=== PATIENT | female | born 1970 | race Caucasian/White ===

== ENCOUNTER 2017-11-25 09:46 | Inpatient (IN) | payer OTHER ==
[2017-11-25] VITALS (9 sets, daily range): BP systolic 118–148; BP diastolic 63–95; PULSE 73–85; RESP 16–20; TEMP 96.7–99.1; O2SAT 95–100
[~2017-11-25] VITALS: Ht 167.6 cm; Wt 76.1 kg
[2017-11-25] MEDS ORDERED: LEVO100T5 PO (10:11)
[2017-11-25] MEDS ORDERED: FLUO-1 PO (10:11)
[2017-11-25] MEDS ORDERED: SODIUM CHLOR 0.9% 1000 ML INJ 1,000 ML IV ONE (10:17)
--- NOTE | 2017-11-25 10:24 | PD ---
HPI . Headache Chief Complaint: GI Complaint Time Seen by Provider: 10:17 Travel History International Travel<30 days: No Contact w/Intl Traveler<30days: No Traveled to known affect area: No History of Present Illness HPI Patient presents with a chief complaint of a headache. Onset was about 8 days ago. It is a global headache which she describes as knives in her head. She currently rates her pain at 7/10. Pain is exacerbated by standing. Associated symptoms include nausea, vomiting, dry heaves and chills. Patient reports that she was seen at an urgent care clinic at the onset of her symptoms and was treated with IV fluids and several different IV medications including Zofran, Reglan, Phenergan and steroids. She states that she felt better. However, her symptoms quickly recurred. She states that the symptoms do wax and wane. She has continued to take Zofran, Reglan, ibuprofen and steroids which she was prescribed a week ago without any relief in her symptoms. PFSH Past Medical History Medical other: Yes (REYNAUD'S DISEASE, CREST DISORDER ) Thyroid Disease: Yes (HYPOTHYROIDISM) ?: Not Menopausal: Yes Past Surgical History Section: Yes Gynecologic Surgery: Yes ("FEMALE SURGERY") Other Surgery: Yes (EAR TUBES X2 CHILD) Social History Alcohol Use: Yes (OCC) Tobacco Use: No Substance Use: No Allergies-Medications (Allergen,Severity, Reaction): Coded Allergies: No Known Allergies (Unverified , 11/25/17) Reported Meds & Prescriptions Reported Meds & Active Scripts Active Reported Prozac (Fluoxetine HCl) 10 Mg Cap 10 Mg PO DAILY Levothyroxine (Levothyroxine Sodium) 100 Mcg Tab 100 Mcg PO DAILY Review of Systems Except as stated in HPI: all other systems reviewed are Neg General / Constitutional: Positive: Chills, No: Fever Eyes: No: Blurred Vision, Photophobia HENT: Positive: Headaches Cardiovascular: No: Chest Pain or Discomfort Respiratory: No: Cough, Shortness of Breath Gastrointestinal: Positive: Nausea, Vomiting, No: Abdominal Pain Genitourinary: No: Urgency, Frequency, Dysuria Physical Exam Narrative GENERAL: Patient looks like she feels poorly. SKIN: warm/dry. Normal color and turgor. HEAD: Normocephalic. Nontender. EYES: Pupils equal and round. No scleral icterus. No injection or drainage. ENT: No nasal bleeding or discharge. Mucous membranes pink and moist. NECK: Trachea midline. Full range of motion. Her neck is supple. CARDIOVASCULAR: Regular rate and rhythm. Heart sounds are normal. RESPIRATORY: No accessory muscle use. Clear to auscultation. Breath sounds equal bilaterally. GASTROINTESTINAL: Abdomen soft. Nontender. Bowel sounds present. Nondistended. Delete MUSCULOSKELETAL: No obvious deformities. NEUROLOGICAL: Awake and alert. No obvious cranial nerve deficits. Motor grossly within normal limits. Normal speech. PSYCHIATRIC: Appropriate mood and affect; insight and judgment normal. Data Data Last Documented VS Vital Signs Date Time Temp Pulse Resp B/P (MAP) Pulse Ox O2 Delivery O2 Flow Rate FiO2 11/25/17 14:09 97.8 78 16 118/63 (81) 99 Room Air Orders Orders Complete Blood Count With Diff (11/25/17 10:17) Basic Metabolic Panel (Bmp) (11/25/17 10:17) Ct Brain W/O Iv Contrast(Rout) (11/25/17 10:17) Iv Access Insert/Monitor (11/25/17 10:17) Sodium Chloride 0.9% Flush (Ns Flush) (11/25/17 10:30) Prochlorperazine Inj (Compazine Inj) (11/25/17 10:30) Diphenhydramine Inj (Benadryl Inj) (11/25/17 10:30) Sodium Chlor 0.9% 1000 Ml Inj (Ns 1000 M (11/25/17 10:17) Ondansetron Inj (Zofran Inj) (11/25/17 11:45) Csf Cell Count + Differential (11/25/17 12:07) Glucose, Csf (11/25/17 12:07) Total Protein, Csf (11/25/17 12:07) Csf Cryptococcus Antigen (11/25/17 12:07) Csf Culture And Gram Stain (11/25/17 13:22) Ceftriaxone Inj (Rocephin Inj) (11/25/17 14:00) Consult Infectious Disease (11/25/17 ) Admit Order (Ed Use Only) (11/25/17 ) Vital Signs (Adult) Q4H (11/25/17 14:59) Diet Heart Healthy (11/25/17 Dinner) Activity Oob With Assistance (11/25/17 14:59) Notify Dr: Other (11/25/17 14:59) Labs Laboratory Tests Test 11/25/17 10:45 11/25/17 12:59 White Blood Count 11.1 TH/MM3 Red Blood Count 5.42 MIL/MM3 Hemoglobin 16.7 GM/DL Hematocrit 47.8 % Mean Corpuscular Volume 88.1 FL Mean Corpuscular Hemoglobin 30.8 PG Mean Corpuscular Hemoglobin Concent 35.0 % Red Cell Distribution Width 13.5 % Platelet Count 190 TH/MM3 Mean Platelet Volume 9.0 FL Neutrophils (%) (Auto) 85.9 % Lymphocytes (%) (Auto) 8.4 % Monocytes (%) (Auto) 4.4 % Eosinophils (%) (Auto) 1.1 % Basophils (%) (Auto) 0.2 % Neutrophils # (Auto) 9.6 TH/MM3 Lymphocytes # (Auto) 0.9 TH/MM3 Monocytes # (Auto) 0.5 TH/MM3 Eosinophils # (Auto) 0.1 TH/MM3 Basophils # (Auto) 0.0 TH/MM3 CBC Comment DIFF FINAL Differential Comment Blood Urea Nitrogen 16 MG/DL Creatinine 0.77 MG/DL Random Glucose 86 MG/DL Calcium Level 8.8 MG/DL Sodium Level 137 MEQ/L Potassium Level 4.0 MEQ/L Chloride Level 104 MEQ/L Carbon Dioxide Level 27.3 MEQ/L Anion Gap 6 MEQ/L Estimat Glomerular Filtration Rate 80 ML/MIN CSF Volume (Tube 1) 1.0 ML CSF Supernatant Color (tube 1) CLEAR CSF Gross Blood (Tube 1) TRACE CSF Volume (Tube 2) 1.0 ML CSF Supernatant Color (tube 2) CLEAR CSF Gross Blood (Tube 2) 0 CSF Volume (Tube 3) 1.0 ML CSF Supernatant Color (tube 3) CLEAR CSF Gross Blood (Tube 3) 0 CSF Volume (Tube 4) 1.2 ML CSF Supernatant Color (tube 4) CLEAR CSF Gross Blood (Tube 4) 0 CSF WBC (Tube 4) 1030 /MM3 CSF RBC (Tube 4) 20 /MM3 CSF Neutrophils 2 % CSF Lymphocytes 96 % CSF Monocytes 2 % CSF Glucose 29 MG/DL CSF Total Protein 136.4 MG/DL MDM Medical Decision Making Medical Screen Exam Complete: Yes Emergency Medical Condition: Yes Medical Record Reviewed: Yes (This patient has no previous visits here.) Differential Diagnosis Differential diagnosis of headache includes but is not limited to migraine, muscle contraction headache, brain tumor, brain bleed Narrative Course This patient presents with a headache associated with nausea and vomiting. Onset of her symptoms was 8 days ago. Physical exam is reassuring. I have ordered IV fluids as well as IV Compazine and Benadryl. Routine labs have been ordered as well as a CT of her head. I am not suspicious of meningitis because her neck is supple. Furthermore, she has been sick now for [address]>>No acute disease. 11:40 AM Patient reports that her head and neck are improved but she is still very nauseous. I have not seen any active vomiting. I will give her a dose of Zofran IV. Spinal tap was discussed with the patient. She was in agreement to proceed with the procedure. The patient noted no significant change in her symptoms with the spinal tap. That is, her headache did not rapidly improve. CSF has 1030 WBCs with a lymphocytosis. Glucose is 29 and protein is 136. She has been empirically treated with Rocephin. The patient has agreed to admission pending the results of her cultures. Procedures Procedure Narrative SPINAL TAP: Following informed written consent, identification of the correct patient and timeout: The patient was placed in the left lateral decubitus position. The back was prepped. The site was draped. The skin was locally anesthetized with 1% plain lidocaine. Approximately 5 cc of spinal fluid was then removed and sent to the lab for testing. Following informed written consent, identification of the correct patient and timeout: Physician Communication Physician Communication Dr. Waters Diagnosis Primary Impression: Nausea & vomiting Qualified Codes: R11.2 - Nausea with vomiting, unspecified Additional Impression: Headache Qualified Codes: R51 - Headache Admitting Information Admitting Physician Requests: Admit Condition: Stable Radha Hendricks MD Nov 25, 2017 10:24
[2017-11-25] MEDS ORDERED: PROCHLORPERAZINE INJ 10 MG/2 ML VIAL IVP ONE (10:30)
[2017-11-25] MEDS ORDERED: diphenhydrAMINE HCL 50 MG/ML VIAL IVP ONE (10:30)
[2017-11-25] MEDS: SODIUM CHLORIDE 0.9% FLUSH 10 ML FLUSH IVF PRN ×2 (10:43→15:58)
[2017-11-25 11:07] LABS: AUTOMATED NEUTROPHIL # 9.6 TH/MM3 (1.8-7.7); BASOPHIL % 0.2 % (0.0-2.0); EOSINOPHIL # 0.1 TH/MM3 (0-0.4); EOSINOPHIL % 1.1 % (0.0-4.0); HEMATOCRIT 47.8 % (35.0-46.0); HEMOGLOBIN 16.7 GM/DL (11.6-15.3); LYMPH % 8.4 % (9.0-44.0); LYMPHOCYTE # 0.9 TH/MM3 (1.0-4.8); MEAN CELL VOLUME 88.1 FL (80.0-100.0); MEAN CORPUSCULAR HEMOGLOBIN 30.8 PG (27.0-34.0); MONO % 4.4 % (0.0-8.0); MONOCYTE # 0.5 TH/MM3 (0-0.9); NEUT % 85.9 % (16.0-70.0); PLATELET COUNT 190 TH/MM3 (150-450); RED BLOOD COUNT 5.42 MIL/MM3 (4.00-5.30); RED CELL DISTRIBUTION WIDTH 13.5 % (11.6-17.2); WHITE BLOOD COUNT 11.1 TH/MM3 (4.0-11.0)
--- NOTE | 2017-11-25 11:13 | RADRPT ---
EXAM DATE/TIME: 11/25/2017 10:58 [facility] COMPARISON: No previous studies available for comparison. INDICATIONS : Headache, nausea. RADIATION DOSE: 35.86 CTDIvol (mGy) MEDICAL HISTORY : None SURGICAL HISTORY : None. ENCOUNTER: Initial ACUITY: 1 week PAIN SCALE: 4/10 LOCATION: Bilateral cranial TECHNIQUE: Multiple contiguous axial images were obtained of the head. Using automated exposure control and adj ustment of the mA and/or kV according to patient size, radiation dose was kept as low as reasonably a chievable to obtain optimal diagnostic quality images. DICOM format image data is available electro nically for review and comparison. FINDINGS: CEREBRUM: The ventricles are normal for age. No evidence of midline shift, mass lesion, hemorrhage or acute in farction. No extra-axial fluid collections are seen. POSTERIOR FOSSA: The cerebellum and brainstem are intact. The 4th ventricle is midline. The cerebellopontine angle i s unremarkable. EXTRACRANIAL: The visualized portion of the orbits is intact. SKULL: The calvaria is intact. No evidence of skull fracture. CONCLUSION: No acute disease. Aramis Betts MD on November 25, 2017 at 11:10 Board Certified Radiologist. This report was verified electronically.
[2017-11-25] MEDS ORDERED: ONDANSETRON HCL 4 MG/2 ML VIAL IV PUSH ONE ×2 (11:45→15:30)
[2017-11-25 11:54] LABS: BICARBONATE 27.3 MEQ/L (21.0-32.0); CALCIUM 8.8 MG/DL (8.5-10.1); CREATININE 0.77 MG/DL (0.50-1.00)
[2017-11-25 13:38] LABS: TOTAL PROTEIN,CSF 136.4 MG/DL (15.0-45.0)
[2017-11-25 13:56] LABS: SUPERNATE COLOR TUBE #1 CLEAR (CLEAR)
[2017-11-25 13:58] LABS: RBC TUBE #4 20 /MM3; WBC TUBE #4 1030 /MM3 (0-10)
[2017-11-25] MEDS ORDERED: cefTRIAXone INJ 2,000 MG in SODIUM CHLORIDE 0.9% INJ 100 ML IV ONE (14:00)
[2017-11-25 14:07] LABS: CSF LYMPHOCYTES 96 %; CSF MONOCYTES 2 %; CSF NEUTROPHILS 2 %
[2017-11-25] MEDS ORDERED: HYDROmorphone HCL PF 2 MG/ML VIAL IV PUSH ONE (16:00)
--- NOTE | 2017-11-25 17:22 | HHI.HP ---
HPI Service [facility] Primary Care Physician No Primary Care Physician Admission Diagnosis meningitis Diagnoses: Chief Complaint: Headache nausea vomiting Travel History International Travel<30 Days: No Contact w/Intl Traveler <30 Da: No Traveled to Known Affected Are: No History of Present Illness Patient is a 47-year-old right handed female who presented to the hospital complaining of headache nausea and vomiting for about a week now. Patient was in [place] then. Patient also states some on and off low-grade fever with MAXIMUM TEMPERATURE of 99.4. Persistence of this prompted consult in an urgent care clinic where she was prescribed some medications "for the stomach".. Patient denies any diarrhea. Denies any cough. Or any URI symptoms. Patient denies any recent sick contacts or recent travel out of the country. Denies any vaginal bleeding still sexually active. Patient states unable to hold down any food. This morning also felt lightheaded which prompted her to come to the hospital and admitted for further evaluation. Patient on review of systems - night sweats which is attributed to her perimenopausal period. And she was prescribed Prozac for this. Patient also takes when necessary medications for knee pain.- Lortab,. Review of Systems Constitutional: DENIES: Fever, Weight loss, Chills, Change in appetite Eyes: DENIES: Blurred vision, Double Vision Ears, nose, mouth, throat: DENIES: Tinnitus, Ear Pain, Epistaxis, Odynophagia Respiratory: DENIES: Cough, Hemoptysis, Sputum production, Shortness of breath Cardiovascular: DENIES: Chest pain, Palpitations, Dyspnea on Exertion, Lower Extremity Edema, Orthopnea Gastrointestinal: DENIES: Black stools, Bloody stools, Difficulty Swallowing, Anorexia Genitourinary: DENIES: Urgency, Hematuria, Vaginal discharge Musculoskeletal: DENIES: Joint pain, Stiffness Integumentary: DENIES: Pruritus Hematologic/lymphatic: DENIES: Bruising Immunologic/allergic: DENIES: Urticaria Neurologic: DENIES: Headache, Speech Problems, Tremor Psychiatric: DENIES: Suicidal Ideation, Homicidal Ideation Past Family Social History Past Medical History Hypothyroidism on Synthroid Chronic knee pain takes not a when necessary for pain Perimenopausal. With night sweats and was prescribed Prozac Past Surgical History Right knee surgery about 6 years ago secondary to a meniscal tear. section and prepped patient described his some scar tissue removal in her uterus states no hysterectomy was done Reported Medications Synthroid Prozac [place] when necessary for pain Allergies: Coded Allergies: No Known Allergies (Unverified , 11/25/17) Family History Noncontributory Social History Smokes 1-1-1/2 pack per day very occasional alcohol use Denies any polysubstance or recreational drug use Physical Exam Vital Signs Vital Signs Date Time Temp Pulse Resp B/P (MAP) Pulse Ox O2 Delivery O2 Flow Rate FiO2 11/25/17 16:28 16 11/25/17 15:30 97.8 76 16 148/80 (102) 98 Room Air 11/25/17 14:09 97.8 78 16 118/63 (81) 99 Room Air 11/25/17 13:05 97.8 73 16 125/66 (85) 99 Room Air 11/25/17 12:01 97.8 73 16 143/81 (101) 99 Room Air 11/25/17 10:06 98.3 82 19 136/89 (105) 98 Room Air 11/25/17 09:51 99.1 81 18 145/95 (112) 100 Physical Exam GENERAL: Patient drowsy but able to answer however takes quite a while to answer , positive photophobia, patient slightly irritable and states that she hasn't slept for the past 5 days. SKIN: No rashes, ecchymoses or lesions. Cool and dry. HEAD: Atraumatic. Normocephalic. No temporal or scalp tenderness. Bilateral photophobia EYES: Pupils equal round and reactive. Extraocular motions intact. No scleral icterus. No injection or drainage. ENT: Nose without bleeding, purulent drainage or septal hematoma. Throat without erythema, very dry oral mucosa. No periauricular tenderness. Ear canals dry. NECK: Trachea midline. No JVD or lymphadenopathy. Positive nuchal rigidity CARDIOVASCULAR: Regular rate and rhythm without murmurs, gallops, or rubs. RESPIRATORY: Clear to auscultation. Breath sounds equal bilaterally. No wheezes , rales, or rhonchi. GASTROINTESTINAL: Abdomen soft, non-tender, nondistended. No guarding. MUSCULOSKELETAL: Extremities without clubbing, cyanosis, or edema. No joint tenderness, effusion, or edema noted. No calf tenderness. Negative Homans sign bilaterally. Motor strength equal in all extremities. Gait testing deferred NEUROLOGICAL: Drowsy. Speech was clear but slow . Cranial nerves II through XII intact. Motor and sensory grossly within normal limits. Five out of 5 muscle strength in all muscle groups. Normal speech. Laboratory Laboratory Tests Test 11/25/17 10:45 11/25/17 12:59 White Blood Count 11.1 Red Blood Count 5.42 Hemoglobin 16.7 Hematocrit 47.8 Mean Corpuscular Volume 88.1 Mean Corpuscular Hemoglobin 30.8 Mean Corpuscular Hemoglobin Concent 35.0 Red Cell Distribution Width 13.5 Platelet Count 190 Mean Platelet Volume 9.0 Neutrophils (%) (Auto) 85.9 Lymphocytes (%) (Auto) 8.4 Monocytes (%) (Auto) 4.4 Eosinophils (%) (Auto) 1.1 Basophils (%) (Auto) 0.2 Neutrophils # (Auto) 9.6 Lymphocytes # (Auto) 0.9 Monocytes # (Auto) 0.5 Eosinophils # (Auto) 0.1 Basophils # (Auto) 0.0 CBC Comment DIFF FINAL Differential Comment Blood Urea Nitrogen 16 Creatinine 0.77 Random Glucose 86 Calcium Level 8.8 Sodium Level 137 Potassium Level 4.0 Chloride Level 104 Carbon Dioxide Level 27.3 Anion Gap 6 Estimat Glomerular Filtration Rate 80 CSF Volume (Tube 1) 1.0 CSF Supernatant Color (tube 1) CLEAR CSF Gross Blood (Tube 1) TRACE CSF Volume (Tube 2) 1.0 CSF Supernatant Color (tube 2) CLEAR CSF Gross Blood (Tube 2) 0 CSF Volume (Tube 3) 1.0 CSF Supernatant Color (tube 3) CLEAR CSF Gross Blood (Tube 3) 0 CSF Volume (Tube 4) 1.2 CSF Supernatant Color (tube 4) CLEAR CSF Gross Blood (Tube 4) 0 CSF WBC (Tube 4) 1030 CSF RBC (Tube 4) 20 CSF Neutrophils 2 CSF Lymphocytes 96 CSF Monocytes 2 CSF Glucose 29 CSF Total Protein 136.4 Date/Time Source Procedure Growth Status 11/25/17 12:59 Cerebral Spinal Fluid Lumbar Puncture Gram Stain - Final Resulted 11/25/17 12:59 Cerebral Spinal Fluid Lumbar Puncture CSF Culture Pending Resulted Result Diagram: 11/25/17 1045 11/25/17 1045 Imaging Last Impressions Head CT 11/25/17 1017 Signed Impressions: Service Date/Time: Saturday, November 25, 2017 10:58 - CONCLUSION: No acute disease. MD Iris Zamora VTE Risk Assessment Iris VTE Risk Assessment: Mod/High Risk (score >= 2) VTE Pharm Contraindication: recent LP Caprini Risk Assessment Model Point Value = 1 Point Value = 2 Point Value = 3 Point Value = 5 Age 41-60 Minor surgery BMI > 25 kg/m2 Swollen legs Varicose veins or History of unexplained or recurrent spontaneous Oral contraceptives or hormone replacement Sepsis (< 1 month) Serious lung disease, including pneumonia (< 1 month) Abnormal pulmonary function Acute myocardial infarction Congestive heart failure (< 1 month) History of inflammatory bowel disease Medical patient at bed rest Age 61-74 Arthroscopic surgery Major open surgery (> 45 min) Laparoscopic surgery (> 45 min) Malignancy Confined to bed (> 72 hours) Immobilizing plaster cast Central venous access Age >= 75 History of VTE Family history of VTE Factor V Leiden Prothrombin [id number] Lupus anticoagulant Anticardiolipin antibodies Elevated serum homocysteine Heparin-induced thrombocytopenia Other congenital or acquired thrombophilia Stroke (< 1 month) Elective arthroplasty Hip, pelvis, or leg fracture Acute spinal cord injury (< 1 month) Prophylaxis Regimen Total Risk Factor Score Risk Level Prophylaxis Regimen 0-1 Low Early ambulation 2 Moderate Order ONE of the following: *Sequential Compression Device (SCD) *Heparin 5000 units SQ BID 3-4 Higher Order ONE of the following medications: *Heparin 5000 units SQ TID *Enoxaparin/Lovenox 40 mg SQ daily (WT < 150 kg, CrCl > 30 mL/min) *Enoxaparin/Lovenox 30 mg SQ daily (WT < 150 kg, CrCl > 10-29 mL/min) *Enoxaparin/Lovenox 30 mg SQ BID (WT < 150 kg, CrCl > 30 mL/min) AND/OR *Sequential Compression Device (SCD) 5 or more Highest Order ONE of the following medications: *Heparin 5000 units SQ TID (Preferred with Epidurals) *Enoxaparin/Lovenox 40 mg SQ daily (WT < 150 kg, CrCl > 30 mL/min) *Enoxaparin/Lovenox 30 mg SQ daily (WT < 150 kg, CrCl > 10-29 mL/min) *Enoxaparin/Lovenox 30 mg SQ BID (WT < 150 kg, CrCl > 30 mL/min) AND *Sequential Compression Device (SCD) Assessment and Plan Assessment and Plan 47-year-old female presenting with one-week history of headache nausea or vomiting with low-grade fever and neck pain Acute bacterial meningitis An LP was done which shows high protein with elevated WBC and low glucose. Start patient on IV fluid. NPO for now . Clear liquids when fully awake and tolerated. When necessary Zofran for nausea. Blood cultures were requested. Check hepatic panel. start her on Rocephin 2 gm IV q 12 ID consulted for further antibiotics recommendations Follow final CSF cultures/ studies Clinically dehydrated start maintenance IVF hypothyroidism continue on Synthroid check a baseline TSH Smoker- will children's counselor prior to DC Bilateral teds SCDs. Zantac IV for GI prophylaxis no Lovenox with recent LP Discussed Condition With Patient will discuss with her again when fully awake Physician Certification 2 Midnight Certification Type: Admission for Inpatient Services Order for Inpatient Services The services are ordered in accordance with Medicare regulations or non- Medicare payer requirements, as applicable. In the case of services not specified as inpatient-only, they are appropriately provided as inpatient services in accordance with the 2-midnight benchmark. Estimated LOS (days): 3 days is the estimated time the patient will need to remain in the hospital, assuming treatment plan goals are met and no additional complications. Post-Hospital Plan: Not yet determined Paul Olmedo MD Nov 25, 2017 17:22
[2017-11-25] MEDS ORDERED: Vancomycin Consult Pharmacy 1 EA OTHER PRN (17:30)
--- NOTE | 2017-11-25 17:33 | PD.CONS ---
History of Present Illness Service Infectious Disease Consult Requested By Dr Hendricks Reason for Consult Evaluate patient with meningitis Primary Care Physician No Primary Care Physician Diagnoses: History of Present Illness Patient seen and examined. Records reviewed. Patient is a 47-year-old female, presented to the hospital for evaluation of her headache, nausea and vomiting. Patient lives in [place] and came down here for the bike week. She started getting sick while she was still in [place] about a week ago. She was having generalized headache, and really bad nausea and vomiting. Was unable to take anything down. She went to an urgent care center there and she was given medications to control her GI symptoms. Patient and the drove down for 2 days to calm down here and they arrived last which is about 3 days prior to admission. Her symptoms continued, and she was also having some photophobia, and highest temperature was just low-grade. She denies any ear problem. No upper respiratory complaints no cough. She has not been anyone sick. She has cats and dogs at home. No birds. This will her and her 21-year-old daughter and none of them are sick. No prior history of meningitis. Presented to the emergency room, and CT of the head is unremarkable. LP was done and it had 1000 white cells predominantly lymphocytes, and it has a very low glucose. Her WBC is normal. She is afebrile. Infectious disease consultation has been requested to evaluate the patient for meningitis. Review of Systems Constitutional: COMPLAINS OF: Dizziness, Change in appetite, Night Sweats, DENIES: Fever Eyes: COMPLAINS OF: Photosensitivity, DENIES: Eye pain, Double Vision Ears, nose, mouth, throat: DENIES: Nasal discharge, Oral lesions, Throat pain, Running Nose, Sinus Pain Respiratory: DENIES: Cough, Sputum production, Shortness of breath Cardiovascular: DENIES: Chest pain, Palpitations Gastrointestinal: COMPLAINS OF: Constipation, Nausea, Vomiting, Anorexia, DENIES: Abdominal pain, Difficulty Swallowing Genitourinary: DENIES: Urgency, Hematuria, Dysuria Musculoskeletal: COMPLAINS OF: Neck pain Integumentary: DENIES: Rash Hematologic/lymphatic: DENIES: Lymphadenopathy Neurologic: COMPLAINS OF: Headache, DENIES: Localized weakness Psychiatric: COMPLAINS OF: Hallucinations Past Family Social History Allergies: Coded Allergies: No Known Allergies (Unverified , 11/25/17) Past Medical History Hypothyroidism on Synthroid Chronic knee pain takes not a when necessary for pain Perimenopausal. 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 section and prepped patient described his some scar tissue removal in her uterus states no hysterectomy was done Active Ordered Medications Current Medications Medications (Trade) Dose Ordered Sig/[place] Route Start Time Stop Time Status Last Admin (NS Flush) 2 ml UNSCH PRN IVF 11/25/17 10:30 11/25/17 15:58 Potassium Chloride/Dextrose/ Sod Cl 1,000 ml @ 100 mls/hr Q10H IV 11/25/17 17:15 Family History Noncontributory Social History Smokes 1-1-1/2 pack per day Occasional alcohol use Denies any polysubstance or recreational drug use Physical Exam Vital Signs Vital Signs Date Time Temp Pulse Resp B/P (MAP) Pulse Ox O2 Delivery O2 Flow Rate FiO2 11/25/17 16:28 16 11/25/17 15:30 97.8 76 16 148/80 (102) 98 Room Air 11/25/17 14:09 97.8 78 16 118/63 (81) 99 Room Air 11/25/17 13:05 97.8 73 16 125/66 (85) 99 Room Air 11/25/17 12:01 97.8 73 16 143/81 (101) 99 Room Air 11/25/17 10:06 98.3 82 19 136/89 (105) 98 Room Air 11/25/17 09:51 99.1 81 18 145/95 (112) 100 Physical Exam GENERAL: Patient is a well-nourished, well-developed patient, lethargic, looks uncomfortable, not in respiratory distress. SKIN: Cool and dry. No generalized rash, no ecchymoses and no evidence of embolic lesions. HEAD: Atraumatic. Normocephalic. No temporal wasting, or tenderness. EYES: [place] conjunctiva. No petechia or hemorrhage. Pupils equal, round and reactive to light. Extraocular movements full and intact. No scleral icterus. No injection or drainage. EARS, NOSE AND THROAT: Nose without bleeding or purulent nasal discharge. No sinus tenderness. Slightly dry oral mucosa, no oral lesions. No exudate. No oral thrush. NECK: Trachea midline. Supple and not tender, no meningeal signs. Pain on flexion, but able to flex CARDIOVASCULAR: Regular rate and rhythm. No murmurs, rubs or gallops heard RESPIRATORY: Clear to auscultation. Breath sounds equal bilaterally. No rales , wheezing or rhonchi ABDOMEN: Soft, non-tender, nondistended. Bowel sounds present and normoactive. No guarding. No rebound. No organomegaly. EXTREMITIES: No clubbing, cyanosis, or edema. No joint effusion, has good ROM. No calf tenderness. Well perfused and warm. NEUROLOGICAL: Mild lethargy. Cranial nerves grossly intact. Speech clear. Motor grossly within normal limits. PSYCHIATRIC: cooperative. LINE: No evidence of infection Laboratory Laboratory Tests Test 11/25/17 10:45 11/25/17 12:59 White Blood Count 11.1 Red Blood Count 5.42 Hemoglobin 16.7 Hematocrit 47.8 Mean Corpuscular Volume 88.1 Mean Corpuscular Hemoglobin 30.8 Mean Corpuscular Hemoglobin Concent 35.0 Red Cell Distribution Width 13.5 Platelet Count 190 Mean Platelet Volume 9.0 Neutrophils (%) (Auto) 85.9 Lymphocytes (%) (Auto) 8.4 Monocytes (%) (Auto) 4.4 Eosinophils (%) (Auto) 1.1 Basophils (%) (Auto) 0.2 Neutrophils # (Auto) 9.6 Lymphocytes # (Auto) 0.9 Monocytes # (Auto) 0.5 Eosinophils # (Auto) 0.1 Basophils # (Auto) 0.0 CBC Comment DIFF FINAL Differential Comment Blood Urea Nitrogen 16 Creatinine 0.77 Random Glucose 86 Calcium Level 8.8 Sodium Level 137 Potassium Level 4.0 Chloride Level 104 Carbon Dioxide Level 27.3 Anion Gap 6 Estimat Glomerular Filtration Rate 80 CSF Volume (Tube 1) 1.0 CSF Supernatant Color (tube 1) CLEAR CSF Gross Blood (Tube 1) TRACE CSF Volume (Tube 2) 1.0 CSF Supernatant Color (tube 2) CLEAR CSF Gross Blood (Tube 2) 0 CSF Volume (Tube 3) 1.0 CSF Supernatant Color (tube 3) CLEAR CSF Gross Blood (Tube 3) 0 CSF Volume (Tube 4) 1.2 CSF Supernatant Color (tube 4) CLEAR CSF Gross Blood (Tube 4) 0 CSF WBC (Tube 4) 1030 CSF RBC (Tube 4) 20 CSF Neutrophils 2 CSF Lymphocytes 96 CSF Monocytes 2 CSF Glucose 29 CSF Total Protein 136.4 Date/Time Source Procedure Growth Status 11/25/17 12:59 Cerebral Spinal Fluid Lumbar Puncture Gram Stain - Final Resulted 11/25/17 12:59 Cerebral Spinal Fluid Lumbar Puncture CSF Culture Pending Resulted Result Diagram: 11/25/17 1045 11/25/17 1045 Imaging RADIOLOGY STUDIES/FILMS REVIEWED Last Impressions Head CT 11/25/17 1017 Signed Impressions: Service Date/Time: Saturday, November 25, 2017 10:58 - CONCLUSION: No acute disease. Aramis Betts MD Assessment and Plan Assessment and Plan IMPRESSION Meningitis, late, has very high WBC, now mostly lymphocytes (neutrophils early then becomes lymphocytes), very low glucose KEARNEY, N/V due to meningitis RECOMMENDATION BC UA and C/S Urine for pneumococcal Ag CSF studies, will add HSV and bacterial Ag MRI brain tomorrow Empiric Abx: Vanco, Rocephin, Ampicillin Follow C/S Monitor progress D/C isolation after 24 hours from adm of Abx I will follow along with you Thank you for this consultation Discussed Condition With D/W Migdalia Alonzo MD Nov 25, 2017 17:33
[2017-11-25] MEDS ORDERED: VANCOMYCIN 1 GM/200 ML PREMIX IV SCH (18:00)
[2017-11-25] MEDS ORDERED: cefTRIAXone INJ 2,000 MG in SODIUM CHLORIDE 0.9% INJ 100 ML IV SCH (18:00)
[2017-11-25 18:20] LABS: TOTAL BILIRUBIN ADULT 0.5 MG/DL (0.2-1.0); TOTAL PROTEIN 7.7 GM/DL (6.4-8.2)
[2017-11-25] MEDS ORDERED: VANCOMYCIN INJ 1,000 MG in SODIUM CHLOR 0.9% 250 ML INJ 250 ML IV SCH (18:30)
[2017-11-25 18:46] LABS: DIRECT BILIRUBIN ADULT 0.1 MG/DL (0.0-0.2); INDIRECT BILIRUBIN 0.4 MG/DL (0.0-0.8)
[2017-11-25] MEDS: AMPICILLIN INJ 2,000 MG in SODIUM CHLORIDE 0.9% INJ 100 ML IV SCH ×2 (18:52→21:05)
[2017-11-25] MEDS: FAMOTIDINE 20 MG/2 ML VIAL IV PUSH SCH (18:57)
[2017-11-25] MEDS: VANCOMYCIN INJ 1,000 MG in SODIUM CHLOR 0.9% 250 ML INJ 250 ML IV SCH (19:31)
[2017-11-25] MEDS ORDERED: VANCOMYCIN INJ 1,750 MG in SODIUM CHLORID 0.9% 500 ML INJ 500 ML IV ONE (20:00)
[2017-11-25] MEDS: D5-NS + KCL 20 MEQ INJ 1,000 ML IV SCH (21:05)
[2017-11-25 22:16] LABS: BILIRUBIN, URINE NEG (NEG); BLOOD, URINE NEG (NEG); GLUCOSE,URINE NEG (NEG); HYALINE CAST, URINE 1 /lpf (RARE); KETONE, URINE 40 mg/dL (NEG); MUCUS URINE FEW /lpf (OCC); NITRITE,URINE NEG (NEG); PH, URINE 5.5 (5.0-8.5); SQUAMOUS EPITHELIAL CELL URINE 1 /hpf (0-5); URINE COLOR YELLOW (YELLW/STRAW); URINE LEUKOCYTE ESTERASE NEG (NEG)
[2017-11-25] MEDS: diphenhydrAMINE HCL 50 MG/ML VIAL IV PUSH ONE ×2 (22:45→23:33)
[2017-11-25] MEDS ORDERED: PROCHLORPERAZINE INJ 10 MG/2 ML VIAL IV PUSH PRN (22:45)
[2017-11-25] MEDS: HYDROmorphone HCL PF 2 MG/ML VIAL IV PRN (23:33)
[2017-11-25] MEDS: ONDANSETRON HCL 4 MG/2 ML VIAL IV PUSH PRN (23:42)
[2017-11-26] MEDS: cefTRIAXone INJ 2,000 MG in SODIUM CHLORIDE 0.9% INJ 100 ML IV SCH ×2 (02:27→14:03)
[2017-11-26] MEDS: D5-NS + KCL 20 MEQ INJ 1,000 ML IV SCH ×3 (03:15→22:30)
[2017-11-26] MEDS: HYDROmorphone HCL PF 2 MG/ML VIAL IV PRN ×6 (03:20→22:31)
[2017-11-26] MEDS: AMPICILLIN INJ 2,000 MG in SODIUM CHLORIDE 0.9% INJ 100 ML IV SCH ×6 (03:23→22:30)
[2017-11-26 04:26] VITALS: BP 132/92; PULSE 58; RESP 18; TEMP 97.8; O2SAT 95
[2017-11-26] MEDS: FAMOTIDINE 20 MG/2 ML VIAL IV PUSH SCH ×2 (06:12→20:01)
[2017-11-26 08:03] VITALS: BP 141/86; PULSE 91; RESP 18; TEMP 97.8; O2SAT 93
--- NOTE | 2017-11-26 11:23 | HHI.PR ---
Subjective Remarks Nursing reports the patient still having a headache, says that the headache comes down to the level of a 5 with the Dilaudid. Patient thinks that it is slightly improved overall since admission. She is very anxious when she hears me state that this could possibly be bacterial meningitis. She mentions that her daughter is and she was around her so she is very worried about contagion. 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 Objective Vital Signs Date Time Temp Pulse Resp B/P (MAP) Pulse Ox O2 Delivery O2 Flow Rate FiO2 11/26/17 08:03 97.8 91 18 141/86 (104) 93 11/26/17 04:26 97.8 58 18 132/92 (105) 95 11/25/17 23:33 97.5 85 20 128/86 (100) 95 11/25/17 21:30 Room Air 11/25/17 20:00 96.7 74 18 147/78 (101) 97 11/25/17 17:11 98.6 77 138/81 (100) 99 11/25/17 16:28 16 11/25/17 15:30 97.8 76 16 148/80 (102) 98 Room Air 11/25/17 14:09 97.8 78 16 118/63 (81) 99 Room Air 11/25/17 13:05 97.8 73 16 125/66 (85) 99 Room Air 11/25/17 12:01 97.8 73 16 143/81 (101) 99 Room Air I/O 11/25/17 11/25/17 11/25/17 11/26/17 11/26/17 11/26/17 07:00 15:00 23:00 07:00 15:00 23:00 Intake Total 1100 ml 350 ml 1224 ml Balance 1100 ml 350 ml 1224 ml Intake Oral 450 ml IV Total 1100 ml 350 ml 774 ml # Voids 3 # Bowel Movements 0 Result Diagram: 11/25/17 1045 11/25/17 1045 Objective Remarks Mild to moderate nuchal rigidity in the neck, Alert and oriented, no acute distress A/P Assessment and Plan 47-year-old female presenting with one-week history of headache nausea or vomiting with low-grade fever and neck pain Acute bacterial meningitis ID following, on Rocephin and Unasyn and vanc CSF studies pending hypothyroidism continue on Synthroid check a baseline TSH Smoker- will insurance counselor prior to DC Bilateral teds SCDs. Zantac IV for GI prophylaxis no Lovenox with recent LP Ramu Tay MD Nov 26, 2017 11:23
[2017-11-26 12:03] VITALS: BP 133/64; PULSE 62; RESP 16; TEMP 97.9; O2SAT 95
[2017-11-26] MEDS: ONDANSETRON HCL 4 MG/2 ML VIAL IV PUSH PRN ×2 (14:17→22:31)
--- NOTE | 2017-11-26 14:31 | HHI.IDPN ---
Subjective Subjective Remarks Patient is a 47-year-old female, presented to the hospital for evaluation of her headache, nausea and vomiting. Patient lives in [place] and came down here for the bike week. She started getting sick while she was still in [place] about a week ago. She was having generalized headache, and really bad nausea and vomiting. Was unable to take anything down. She went to an urgent care center there and she was given medications to control her GI symptoms. Patient and the drove down for 2 days to calm down here and they arrived last which is about 3 days prior to admission. Her symptoms continued, and she was also having some photophobia, and highest temperature was just low-grade. She denies any ear problem. No upper respiratory complaints no cough. She has not been anyone sick. She has cats and dogs at home. No birds. This will her and her 21-year-old daughter and none of them are sick. No prior history of meningitis. Presented to the emergency room, and CT of the head is unremarkable. LP was done and it had 1000 white cells predominantly lymphocytes, and it has a very low glucose. Her WBC is normal. She is afebrile. Infectious disease consultation has been requested to evaluate the patient for meningitis. Notes reviewed Temps ok KEARNEY better, but still there, responds to pain meds C/S negative so far Bacterial Ag pending Crypto Ag pending HSV pending Afraid to eat because she thinks she will throw up She has had migraines before, but not much KEARNEY, she had visual complaints - evaluated by neurologist Antibiotics Current Medications Vanco Rocephin AMpicillin Medications (Trade) Dose Ordered Sig/[place] Route Start Time Stop Time Status Last Admin (NS Flush) 2 ml UNSCH PRN IVF 11/25/17 10:30 11/25/17 15:58 Potassium Chloride/Dextrose/ Sod Cl 1,000 ml @ 100 mls/hr Q10H IV 11/25/17 17:15 11/26/17 09:26 Ceftriaxone Sodium 2000 mg/ Sodium Chloride 100 ml @ 200 mls/hr Q12H IV 11/26/17 02:00 11/26/17 14:03 Pharmacy Profile Note 0 ml @ 0 mls/hr UNSCH PRN OTHER 11/25/17 17:30 Ampicillin Sodium 2000 mg/Sodium Chloride 100 ml @ 400 mls/hr Q4H IV 11/25/17 18:00 11/26/17 14:03 (Pepcid Inj) 20 mg Q12H IV PUSH 11/25/17 18:00 11/26/17 06:12 (Zofran Inj) 4 mg Q8HR PRN IV PUSH 11/25/17 18:00 11/26/17 14:17 Vancomycin HCl 1000 mg/Sodium Chloride 250 ml @ 250 mls/hr Q12H IV 11/25/17 18:00 11/25/17 19:31 (Dilaudid Pf Inj) 1 mg Q3H PRN IV 11/25/17 22:45 11/26/17 09:20 Miscellaneous Information SPECIFIC LAB TO BE ... ONCE ONCE .XX 11/27/17 05:45 11/27/17 05:46 Lines PIV Past Medical History Hypothyroidism on Synthroid Chronic knee pain takes not a when necessary for pain Perimenopausal. 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 section and prepped patient described his some scar tissue removal in her uterus states no hysterectomy was done Allergies: Coded Allergies: No Known Allergies (Unverified , 11/25/17) Objective . Vital Signs Date Time Temp Pulse Resp B/P (MAP) Pulse Ox O2 Delivery O2 Flow Rate FiO2 11/26/17 08:03 97.8 91 18 141/86 (104) 93 11/26/17 08:00 Room Air 11/26/17 04:26 97.8 58 18 132/92 (105) 95 11/25/17 23:33 97.5 85 20 128/86 (100) 95 11/25/17 21:30 Room Air 11/25/17 20:00 96.7 74 18 147/78 (101) 97 11/25/17 17:11 98.6 77 138/81 (100) 99 11/25/17 16:28 16 11/25/17 15:30 97.8 76 16 148/80 (102) 98 Room Air . Laboratory Tests Test 11/25/17 10:45 White Blood Count 11.1 TH/MM3 Red Blood Count 5.42 MIL/MM3 Hemoglobin 16.7 GM/DL Hematocrit 47.8 % Mean Corpuscular Volume 88.1 FL Mean Corpuscular Hemoglobin 30.8 PG Mean Corpuscular Hemoglobin Concent 35.0 % Red Cell Distribution Width 13.5 % Platelet Count 190 TH/MM3 Mean Platelet Volume 9.0 FL Neutrophils (%) (Auto) 85.9 % Lymphocytes (%) (Auto) 8.4 % Monocytes (%) (Auto) 4.4 % Eosinophils (%) (Auto) 1.1 % Basophils (%) (Auto) 0.2 % Neutrophils # (Auto) 9.6 TH/MM3 Lymphocytes # (Auto) 0.9 TH/MM3 Monocytes # (Auto) 0.5 TH/MM3 Eosinophils # (Auto) 0.1 TH/MM3 Basophils # (Auto) 0.0 TH/MM3 CBC Comment DIFF FINAL Differential Comment Laboratory Tests Test 11/25/17 10:45 Blood Urea Nitrogen 16 MG/DL Creatinine 0.77 MG/DL Random Glucose 86 MG/DL Calcium Level 8.8 MG/DL Sodium Level 137 MEQ/L Potassium Level 4.0 MEQ/L Chloride Level 104 MEQ/L Carbon Dioxide Level 27.3 MEQ/L Anion Gap 6 MEQ/L Estimat Glomerular Filtration Rate 80 ML/MIN Total Bilirubin 0.5 MG/DL Direct Bilirubin 0.1 MG/DL Indirect Bilirubin 0.4 MG/DL Aspartate Amino Transf (AST/SGOT) 19 U/L Alanine Aminotransferase (ALT/SGPT) 27 U/L Alkaline Phosphatase 62 U/L Total Protein 7.7 GM/DL Albumin 4.0 GM/DL Thyroid Stimulating Hormone 3rd Gen 3.000 uIU/ML Microbiology Date/Time Source Procedure Growth Status 11/26/17 06:00 Blood Peripheral Aerobic Blood Culture Pending Received 11/26/17 06:00 Blood Peripheral Anaerobic Blood Culture Pending Received 11/26/17 05:55 Blood Peripheral Aerobic Blood Culture Pending Received 11/26/17 05:55 Blood Peripheral Anaerobic Blood Culture Pending Received 11/25/17 12:59 Cerebral Spinal Fluid Lumbar Puncture Gram Stain - Final Resulted 11/25/17 12:59 Cerebral Spinal Fluid Lumbar Puncture CSF Culture - Preliminary NO GROWTH IN 24 HOURS. Resulted 11/25/17 21:30 Urine Random Urine Streptococcus pneumoniae Antigen (M - Final PRESUMPTIVE NEGATIVE FOR STREPTOCOCCU... Complete Imaging Last Impressions Head CT 11/25/17 1017 Signed Impressions: Service Date/Time: Saturday, November 25, 2017 10:58 - CONCLUSION: No acute disease. Aramis Betts MD Physical Exam GENERAL: awake and alert, looks uncomfortable, not in respiratory distress. SKIN: Cool and dry. No generalized rash, no ecchymoses and no evidence of embolic lesions. HEAD: Atraumatic. Normocephalic. No temporal wasting, or tenderness. EYES: [place] conjunctiva. No petechia or hemorrhage. Pupils equal, round and reactive to light. Extraocular movements full and intact. No scleral icterus. No injection or drainage. EARS, NOSE AND THROAT: Nose without bleeding or purulent nasal discharge. No sinus tenderness. Slightly dry oral mucosa, no oral lesions. No exudate. No oral thrush. NECK: Trachea midline. Supple and not tender, no meningeal signs. Pain on flexion, but able to flex CARDIOVASCULAR: Regular rate and rhythm. No murmurs, rubs or gallops heard RESPIRATORY: Clear to auscultation. Breath sounds equal bilaterally. No rales , wheezing or rhonchi ABDOMEN: Soft, non-tender, nondistended. Bowel sounds present and normoactive. No guarding. No rebound. No organomegaly. EXTREMITIES: No clubbing, cyanosis, or edema. No joint effusion, has good ROM. No calf tenderness. Well perfused and warm. NEUROLOGICAL: Non-focal. PSYCHIATRIC: cooperative. LINE: No evidence of infection Assessment & Plan Remarks IMPRESSION Meningitis, ?late, has very high WBC, now mostly lymphocytes (neutrophils early then becomes lymphocytes), very low glucose - ?late bacterial, ?viral (though WBC too high) KEARNEY, N/V due to meningitis RECOMMENDATION MRI brain Empiric Abx: Vanco, Rocephin, Ampicillin Follow C/S Monitor progress D/C isolation ?neuro evaluation Migdalia Logan MD Nov 26, 2017 14:31
[2017-11-26 16:03] VITALS: BP 130/64; PULSE 64; RESP 16; TEMP 98; O2SAT 96
[2017-11-26] MEDS: VANCOMYCIN INJ 1,000 MG in SODIUM CHLOR 0.9% 250 ML INJ 250 ML IV SCH (18:00)
[2017-11-26 20:00] VITALS: BP 161/73; PULSE 65; RESP 18; TEMP 98.1; O2SAT 94
[2017-11-27] VITALS: BP 148/71; PULSE 58; RESP 19; TEMP 98.4; O2SAT 94
[2017-11-27] MEDS: cefTRIAXone INJ 2,000 MG in SODIUM CHLORIDE 0.9% INJ 100 ML IV SCH ×2 (01:58→15:08)
[2017-11-27] MEDS: AMPICILLIN INJ 2,000 MG in SODIUM CHLORIDE 0.9% INJ 100 ML IV SCH ×3 (01:58→10:15)
[2017-11-27] MEDS: HYDROmorphone HCL PF 2 MG/ML VIAL IV PRN ×5 (01:59→18:44)
[2017-11-27 04:00] VITALS: BP 135/72; PULSE 71; RESP 17; TEMP 97.9; O2SAT 94
[2017-11-27] MEDS: FAMOTIDINE 20 MG/2 ML VIAL IV PUSH SCH (05:23)
[2017-11-27] MEDS ORDERED: PHARMACY ORDERED LAB ONE (05:45)
[2017-11-27] MEDS: VANCOMYCIN INJ 1,000 MG in SODIUM CHLOR 0.9% 250 ML INJ 250 ML IV SCH (06:04)
[2017-11-27 07:35] LABS: CREATININE 0.68 MG/DL (0.50-1.00)
[2017-11-27 08:00] VITALS: BP 150/80; PULSE 73; RESP 20; TEMP 97.9; O2SAT 96
[2017-11-27] MEDS: ONDANSETRON HCL 4 MG/2 ML VIAL IV PUSH PRN (10:15)
[2017-11-27] MEDS: D5-NS + KCL 20 MEQ INJ 1,000 ML IV SCH ×3 (10:15→22:11)
[2017-11-27 10:25] LABS: HSV 1,PCR Negative (Negative)
[2017-11-27 12:00] VITALS: BP 166/86; PULSE 74; RESP 20; TEMP 98.1; O2SAT 96
--- NOTE | 2017-11-27 12:33 | HHI.IDPN ---
Subjective Subjective Remarks Patient is a 47-year-old female, presented to the hospital for evaluation of her headache, nausea and vomiting. Patient lives in [place] and came down here for the bike week. She started getting sick while she was still in [place] about a week ago. She was having generalized headache, and really bad nausea and vomiting. Was unable to take anything down. She went to an urgent care center there and she was given medications to control her GI symptoms. Patient and the drove down for 2 days to calm down here and they arrived last which is about 3 days prior to admission. Her symptoms continued, and she was also having some photophobia, and highest temperature was just low-grade. She denies any ear problem. No upper respiratory complaints no cough. She has not been anyone sick. She has cats and dogs at home. No birds. This will her and her 21-year-old daughter and none of them are sick. No prior history of meningitis. Presented to the emergency room, and CT of the head is unremarkable. LP was done and it had 1000 white cells predominantly lymphocytes, and it has a very low glucose. Her WBC is normal. She is afebrile. Infectious disease consultation has been requested to evaluate the patient for meningitis. Notes reviewed Temps ok D/W RN C/O nausea, vomited once today Still with KEARNEY micha when she moves; responds some to pain meds CSF studies reviewed C/S negative 48 hours Bacterial Ag pending HSV 2 PCR (+) HSV 1 PCR negative Crypto Ag pending Just had MRI brain Antibiotics Current Medications Vanco Rocephin AMpicillin Medications (Trade) Dose Ordered Sig/[place] Route Start Time Stop Time Status Last Admin (NS Flush) 2 ml UNSCH PRN IVF 11/25/17 10:30 11/25/17 15:58 Potassium Chloride/Dextrose/ Sod Cl 1,000 ml @ 100 mls/hr Q10H IV 11/25/17 17:15 11/26/17 09:26 Ceftriaxone Sodium 2000 mg/ Sodium Chloride 100 ml @ 200 mls/hr Q12H IV 11/26/17 02:00 11/26/17 14:03 Pharmacy Profile Note 0 ml @ 0 mls/hr UNSCH PRN OTHER 11/25/17 17:30 Ampicillin Sodium 2000 mg/Sodium Chloride 100 ml @ 400 mls/hr Q4H IV 11/25/17 18:00 11/26/17 14:03 (Pepcid Inj) 20 mg Q12H IV PUSH 11/25/17 18:00 11/26/17 06:12 (Zofran Inj) 4 mg Q8HR PRN IV PUSH 11/25/17 18:00 11/26/17 14:17 Vancomycin HCl 1000 mg/Sodium Chloride 250 ml @ 250 mls/hr Q12H IV 11/25/17 18:00 11/25/17 19:31 (Dilaudid Pf Inj) 1 mg Q3H PRN IV 11/25/17 22:45 11/26/17 09:20 Miscellaneous Information SPECIFIC LAB TO BE JIMMY... ONCE ONCE .XX 11/27/17 05:45 11/27/17 05:46 Lines PIV Past Medical History Hypothyroidism on Synthroid Chronic knee pain takes not a when necessary for pain Perimenopausal. 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 section and prepped patient described his some scar tissue removal in her uterus states no hysterectomy was done Allergies: Coded Allergies: No Known Allergies (Unverified , 11/25/17) Objective . Vital Signs Date Time Temp Pulse Resp B/P (MAP) Pulse Ox O2 Delivery O2 Flow Rate FiO2 11/27/17 08:00 Room Air 11/27/17 08:00 97.9 73 20 150/80 (103) 96 11/27/17 04:00 97.9 71 17 135/72 (93) 94 11/27/17 00:00 98.4 58 19 148/71 (96) 94 11/27/17 00:00 Room Air 11/26/17 20:00 98.1 65 18 161/73 (102) 94 11/26/17 20:00 Room Air 11/26/17 16:03 98.0 64 16 130/64 (86) 96 11/26/17 16:00 Room Air . Laboratory Tests Test 11/27/17 05:20 Creatinine 0.68 MG/DL Estimat Glomerular Filtration Rate 93 ML/MIN Microbiology Date/Time Source Procedure Growth Status 11/26/17 06:00 Blood Peripheral Aerobic Blood Culture - Preliminary NO GROWTH IN 1 DAY Resulted 11/26/17 06:00 Blood Peripheral Anaerobic Blood Culture - Preliminary NO GROWTH IN 1 DAY Resulted 11/26/17 05:55 Blood Peripheral Aerobic Blood Culture - Preliminary NO GROWTH IN 1 DAY Resulted 11/26/17 05:55 Blood Peripheral Anaerobic Blood Culture - Preliminary NO GROWTH IN 1 DAY Resulted 11/25/17 12:59 Cerebral Spinal Fluid Lumbar Puncture Gram Stain - Final Resulted 11/25/17 12:59 Cerebral Spinal Fluid Lumbar Puncture CSF Culture - Preliminary NO GROWTH IN 48 HOURS. Resulted 11/25/17 21:30 Urine Random Urine Streptococcus pneumoniae Antigen (M - Final PRESUMPTIVE NEGATIVE FOR STREPTOCOCCU... Complete Imaging Last Impressions Head CT 11/25/17 1017 Signed Impressions: Service Date/Time: Saturday, November 25, 2017 10:58 - CONCLUSION: No acute disease. Aramis Betts MD Physical Exam GENERAL: awake and alert, not in respiratory distress. SKIN: Cool and dry. No generalized rash HEAD: Atraumatic. Normocephalic. No temporal wasting, or tenderness. EYES: [place] conjunctiva. No petechia or hemorrhage. Pupils equal, round and reactive to light. Extraocular movements full and intact. No scleral icterus. No injection or drainage. EARS, NOSE AND THROAT: Nose without bleeding or purulent nasal discharge. No sinus tenderness. Slightly dry oral mucosa, no oral lesions. No exudate. No oral thrush. NECK: Trachea midline. Not tender. Pain on flexion, but able to flex CARDIOVASCULAR: Regular rate and rhythm. No murmurs, rubs or gallops heard RESPIRATORY: Clear to auscultation. Breath sounds equal bilaterally. No rales , wheezing or rhonchi ABDOMEN: Soft, non-tender, nondistended. Bowel sounds present and normoactive. No guarding. No rebound. No organomegaly. EXTREMITIES: No clubbing, cyanosis, or edema. No joint effusion, has good ROM. No calf tenderness. Well perfused and warm. NEUROLOGICAL: Non-focal. PSYCHIATRIC: cooperative. LINE: No evidence of infection Assessment & Plan Remarks IMPRESSION Meningitis, HSV 2 PCVR (+) KEARNEY, N/V due to meningitis RECOMMENDATION MRI brain Stop Vanco and Ampicillin IV Acyclovir Follow C/S - if negative D/C Rocephin tomorrow Monitor progress Will determine course of Rx once all diagnostic tests back D/W RN Explained plan to patient and [place],Migdalia G MD Nov 27, 2017 12:33
[2017-11-27] MEDS ORDERED: GADODIAMIDE PF 287 MG/ML 5 ML VIAL (for RAD MRI) IVCONTRAST ONE (12:53)
--- NOTE | 2017-11-27 13:43 | HHI.PR ---
Subjective Remarks Nursing reports the patient still complaining of headache. Patient herself says that the headache is a little better overall since admission as well as just slightly improved range of motion of her neck. But she says the nausea and vomiting is actually worse. She denies any abdominal pains. Says that she has trouble just keeping food down. She does think that she had some morning acid reflux. Objective Vital Signs Date Time Temp Pulse Resp B/P (MAP) Pulse Ox O2 Delivery O2 Flow Rate FiO2 11/27/17 12:00 98.1 74 20 166/86 (112) 96 11/27/17 08:00 Room Air 11/27/17 08:00 97.9 73 20 150/80 (103) 96 11/27/17 04:00 97.9 71 17 135/72 (93) 94 11/27/17 00:00 98.4 58 19 148/71 (96) 94 11/27/17 00:00 Room Air 11/26/17 20:00 98.1 65 18 161/73 (102) 94 11/26/17 20:00 Room Air 11/26/17 16:03 98.0 64 16 130/64 (86) 96 11/26/17 16:00 Room Air I/O 11/26/17 11/26/17 11/26/17 11/27/17 11/27/17 11/27/17 06:59 14:59 22:59 06:59 14:59 22:59 Intake Total 1224 ml 380 ml 240 ml Balance 1224 ml 380 ml 240 ml Intake Oral 450 ml 380 ml 240 ml IV Total 774 ml # Voids 3 4 4 # Bowel Movements 0 0 0 Result Diagram: 11/25/17 1045 11/27/17 0520 Objective Remarks Mild to moderate nuchal rigidity in the neck which the patient thinks is improved since yesterday Abdomen soft, nontender nondistended, no jaundice A/P Assessment and Plan 47-year-old female presenting with one-week history of headache nausea or vomiting with low-grade fever and neck pain meningitis - ID following, ? viral vs bacterial, continuing acyclovir and Rocephin, ampicillin and vancomycin stopped Intractable headache with nausea vomiting -MRI head ordered, pending; unlikely GI origin given unremarkable LFTs and no abd pain, can consider ct abd in AM if persists - cmp in AM; NS bolus and IVFs hypothyroidism -Stable, continue home Synthroid Bilateral teds SCDs. Zantac IV for GI prophylaxis - switching to protonix no Lovenox with recent LP Ramu Tay MD Nov 27, 2017 13:43
--- NOTE | 2017-11-27 13:58 | RADRPT ---
EXAM DATE/TIME: 11/27/2017 12:38 [facility] COMPARISON: None. INDICATIONS : Meningitis.<<Severe headache.>> CONTRAST: <<14>> cc Omniscan (gadodiamide) IV MEDICAL HISTORY : Hypertension. SURGICAL HISTORY : Right knee repair. ENCOUNTER: Initial ACUITY: 3 day PAIN SCORE: 3/10 LOCATION: Head. TECHNIQUE: Multiplanar, multisequence MRI of the brain was performed both prior to and following the administrat ion of paramagnetic contrast. FINDINGS: CEREBRUM: The ventricles are normal for age. No evidence of midline shift, mass lesion, hemorrhage or acute in farction. No extraaxial fluid collections are seen. The pituitary gland and suprasellar cistern are normal in configuration. WHITE MATTER: Minimal signal abnormalities are seen in the white matter. POSTERIOR FOSSA: The cerebellum and brainstem are intact. The 4th ventricle is midline. The cerebellopontine angle is unremarkable. The cerebellar tonsils are normal in position. DIFFUSION IMAGING: No focal areas of restricted diffusion are seen. No evidence of acute infarction. EXTRACRANIAL: The visualized portions of the orbits and paranasal sinuses are unremarkable. POST-CONTRAST: No abnormal areas of parenchymal or dural enhancement. No evidence of blood-brain barrier breakdown. CONCLUSION: 1. No acute findings. Specifically no meningeal enhancement identified in patient with reported histo ry of meningitis. Several tiny white matter signal abnormalities likely of no clinical consequence. T here is an infarct, mass effect or shift. No hydrocephalus. Austin Patel MD on November 27, 2017 at 13:53 Board Certified Radiologist. This report was verified electronically.
[2017-11-27] MEDS ORDERED: SODIUM CHLOR 0.9% 1000 ML INJ 1,000 ML IV ONE (14:15)
[2017-11-27] MEDS: PANTOPRAZOLE SOD 40 MG DELAYED RELEASE TAB PO SCH (15:07)
[2017-11-27] MEDS: ACYCLOVIR IV SCH ×2 (15:07→22:14)
[2017-11-27] MEDS: SODIUM CHLORIDE 0.9% IV SCH ×2 (15:07→22:14)
[2017-11-27] MEDS: SODIUM CHLOR 0.9% 1000 ML INJ 1,000 ML IV SCH ×2 (15:09→22:11)
[2017-11-27 16:00] VITALS: BP 175/92; PULSE 69; RESP 20; TEMP 97.7; O2SAT 99
[2017-11-27] MEDS ORDERED: VANCOMYCIN INJ 1,250 MG in SODIUM CHLOR 0.9% 250 ML INJ 250 ML IV SCH (18:00)
[2017-11-27] MEDS ORDERED: PROMETHAZINE INJ 25 MG/ML VIAL IM PRN (18:30)
[2017-11-27 20:00] VITALS: BP 140/88; PULSE 75; RESP 19; TEMP 98.8; O2SAT 99
[2017-11-28] VITALS: BP 140/76; PULSE 69; RESP 18; TEMP 98.3; O2SAT 97
[2017-11-28] MEDS: cefTRIAXone INJ 2,000 MG in SODIUM CHLORIDE 0.9% INJ 100 ML IV SCH (02:13)
[2017-11-28] MEDS: HYDROmorphone HCL PF 2 MG/ML VIAL IV PRN ×2 (02:18→08:33)
[2017-11-28 04:00] VITALS: BP 142/93; PULSE 77; RESP 18; TEMP 98.2; O2SAT 95
[2017-11-28] MEDS: SODIUM CHLORIDE 0.9% IV SCH ×3 (05:59→21:19)
[2017-11-28] MEDS: ACYCLOVIR IV SCH ×3 (05:59→21:19)
[2017-11-28 07:26] LABS: ALBUMIN 3.2 GM/DL (3.4-5.0); ALKALINE PHOSPHATASE 54 U/L (45-117); ALT (GPT) 41 U/L (10-53); AST (GOT) 22 U/L (15-37); BICARBONATE 30.3 MEQ/L (21.0-32.0); BLOOD UREA NITROGEN 7 MG/DL (7-18); CALCIUM 8.1 MG/DL (8.5-10.1); CHLORIDE 101 MEQ/L (98-107); CREATININE 0.63 MG/DL (0.50-1.00); GLOMERULAR FILTRATION RATE 101 ML/MIN (>89); GLUCOSE,RANDOM 92 MG/DL (74-106); SODIUM (NA) 139 MEQ/L (136-145); TOTAL BILIRUBIN ADULT 0.3 MG/DL (0.2-1.0); TOTAL PROTEIN 6.7 GM/DL (6.4-8.2)
[2017-11-28 08:04] VITALS: BP 143/82; PULSE 62; RESP 17; TEMP 98; O2SAT 98
[2017-11-28] MEDS: PANTOPRAZOLE SOD 40 MG DELAYED RELEASE TAB PO SCH (08:23)
--- NOTE | 2017-11-28 11:14 | HHI.PR ---
Subjective Remarks Nursing reports the patient still complaining of headache which is much improved , tolerating p.o. intake finally. Says that she did throw up this morning but thought it was reflux related. Objective Vital Signs Date Time Temp Pulse Resp B/P (MAP) Pulse Ox O2 Delivery O2 Flow Rate FiO2 11/28/17 09:15 Room Air 11/28/17 08:04 98.0 62 17 143/82 (102) 98 11/28/17 04:00 98.2 77 18 142/93 (109) 95 11/28/17 00:00 98.3 69 18 140/76 (97) 97 11/27/17 20:00 98.8 75 19 140/88 (105) 99 11/27/17 20:00 Room Air 11/27/17 16:00 97.7 69 20 175/92 (119) 99 11/27/17 16:00 Room Air 11/27/17 12:00 98.1 74 20 166/86 (112) 96 11/27/17 12:00 Room Air I/O 11/27/17 11/27/17 11/27/17 11/28/17 11/28/17 11/28/17 07:00 15:00 23:00 07:00 15:00 23:00 Intake Total 240 ml 200 ml Balance 240 ml 200 ml Intake Oral 240 ml 200 ml # Voids 4 2 3 # Bowel Movements 0 0 0 Result Diagram: 11/25/17 1045 11/28/17 0515 Objective Remarks Mild to moderate nuchal rigidity in the neck which is slightly improved since yesterday Abdomen soft, nontender nondistended, no jaundice A/P Assessment and Plan 47-year-old female presenting with one-week history of headache nausea or vomiting with low-grade fever and neck pain meningitis - ID following, 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 Ramu Allen MD Nov 28, 2017 11:14
[2017-11-28] MEDS: FLUCONAZOLE 100 MG TAB PO SCH (11:16)
[2017-11-28 12:04] VITALS: BP 129/72; PULSE 107; RESP 17; TEMP 98.4; O2SAT 99
[2017-11-28] MEDS: ACETAMINOPHEN/HYDROcodone 325 MG/7.5 MG TAB PO PRN ×3 (12:18→22:47)
[2017-11-28 13:11] LABS: CSF CRYPTOCOCCUS AG CONF ND (NOT DETECTD)
--- NOTE | 2017-11-28 13:33 | HHI.IDPN ---
Subjective Subjective Remarks Patient is a 47-year-old female, presented to the hospital for evaluation of her headache, nausea and vomiting. Patient lives in [place] and came down here for the bike week. She started getting sick while she was still in [place] about a week ago. She was having generalized headache, and really bad nausea and vomiting. Was unable to take anything down. She went to an urgent care center there and she was given medications to control her GI symptoms. Patient and the drove down for 2 days to calm down here and they arrived last which is about 3 days prior to admission. Her symptoms continued, and she was also having some photophobia, and highest temperature was just low-grade. She denies any ear problem. No upper respiratory complaints no cough. She has not been anyone sick. She has cats and dogs at home. No birds. This will her and her 21-year-old daughter and none of them are sick. No prior history of meningitis. Presented to the emergency room, and CT of the head is unremarkable. LP was done and it had 1000 white cells predominantly lymphocytes, and it has a very low glucose. Her WBC is normal. She is afebrile. Infectious disease consultation has been requested to evaluate the patient for meningitis. Notes reviewed Temps ok D/W RN Nausea and vomiting better, tolerating her food Still with KEARNEY, trying to wean off her IV dilaudid, bridging to [place] CSF studies reviewed C/S negative 48 hours Bacterial Ag pending HSV 2 PCR (+) HSV 1 PCR negative Crypto Ag pending MRI brain ok, no meningeal enhancement seen Antibiotics Rocephin Acyclovir Current Medications Medications (Trade) Dose Ordered Sig/[place] Route Start Time Stop Time Status Last Admin (NS Flush) 2 ml UNSCH PRN IVF 11/25/17 10:30 11/25/17 15:58 Potassium Chloride/Dextrose/ Sod Cl 1,000 ml @ 100 mls/hr Q10H IV 11/25/17 17:15 11/27/17 22:11 (Zofran Inj) 4 mg Q8HR PRN IV PUSH 11/25/17 18:00 11/27/17 10:15 Acyclovir Sodium 751 mg/Sodium Chloride 150 ml @ 150 mls/hr Q8H IV 11/27/17 14:00 11/28/17 12:48 Sodium Chloride 1,000 ml @ 84 mls/hr [id number] IV 11/27/17 14:15 11/27/17 15:09 (Protonix) 40 mg DAILY PO 11/27/17 14:15 11/28/17 08:23 (Phenergan Inj) 12.5 mg Q6H PRN IM 11/27/17 18:30 11/27/17 18:43 (Diflucan) 100 mg Q24H PO 11/28/17 11:00 11/28/17 11:16 ([place] 7.5-325 Mg) 1 tab Q6H PRN PO 11/28/17 11:15 11/28/17 12:18 Lines PIV Past Medical History Hypothyroidism on Synthroid Chronic knee pain takes not a when necessary for pain Perimenopausal. 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 section and prepped patient described his some scar tissue removal in her uterus states no hysterectomy was done Allergies: Coded Allergies: No Known Allergies (Unverified , 11/25/17) Objective . Vital Signs Date Time Temp Pulse Resp B/P (MAP) Pulse Ox O2 Delivery O2 Flow Rate FiO2 11/28/17 12:04 98.4 107 17 129/72 (91) 99 11/28/17 09:15 Room Air 11/28/17 08:04 98.0 62 17 143/82 (102) 98 11/28/17 04:00 98.2 77 18 142/93 (109) 95 11/28/17 00:00 98.3 69 18 140/76 (97) 97 11/27/17 20:00 98.8 75 19 140/88 (105) 99 11/27/17 20:00 Room Air 11/27/17 16:00 97.7 69 20 175/92 (119) 99 11/27/17 16:00 Room Air . Laboratory Tests Test 11/27/17 05:20 11/28/17 05:15 Creatinine 0.68 MG/DL 0.63 MG/DL Estimat Glomerular Filtration Rate 93 ML/MIN 101 ML/MIN Blood Urea Nitrogen 7 MG/DL Random Glucose 92 MG/DL Total Protein 6.7 GM/DL Albumin 3.2 GM/DL Calcium Level 8.1 MG/DL Alkaline Phosphatase 54 U/L Aspartate Amino Transf (AST/SGOT) 22 U/L Alanine Aminotransferase (ALT/SGPT) 41 U/L Total Bilirubin 0.3 MG/DL Sodium Level 139 MEQ/L Potassium Level 3.8 MEQ/L Chloride Level 101 MEQ/L Carbon Dioxide Level 30.3 MEQ/L Anion Gap 8 MEQ/L Microbiology Date/Time Source Procedure Growth Status 11/26/17 06:00 Blood Peripheral Aerobic Blood Culture - Preliminary NO GROWTH IN 2 DAYS Resulted 11/26/17 06:00 Blood Peripheral Anaerobic Blood Culture - Preliminary NO GROWTH IN 2 DAYS Resulted 11/26/17 05:55 Blood Peripheral Aerobic Blood Culture - Preliminary NO GROWTH IN 2 DAYS Resulted 11/26/17 05:55 Blood Peripheral Anaerobic Blood Culture - Preliminary NO GROWTH IN 2 DAYS Resulted 11/25/17 21:30 Urine Random Urine Streptococcus pneumoniae Antigen (M - Final PRESUMPTIVE NEGATIVE FOR STREPTOCOCCU... Complete Imaging Last Impressions Head CT 11/25/17 1017 Signed Impressions: Service Date/Time: Saturday, November 25, 2017 10:58 - CONCLUSION: No acute disease. Aramis Betts MD Physical Exam GENERAL: awake and alert, not in respiratory distress. SKIN: Cool and dry. No generalized rash HEAD: Atraumatic. Normocephalic. No temporal wasting, or tenderness. EYES: [place] conjunctiva. No petechia or hemorrhage. Pupils equal, round and reactive to light. Extraocular movements full and intact. No scleral icterus. No injection or drainage. EARS, NOSE AND THROAT: Nose without bleeding or purulent nasal discharge. Moist oral mucosa, no oral lesions. h. NECK: Trachea midline. Not tender. neck movement better CARDIOVASCULAR: Regular rate and rhythm. No murmurs, rubs or gallops heard RESPIRATORY: Clear to auscultation. Breath sounds equal bilaterally. No rales , wheezing or rhonchi ABDOMEN: Soft, non-tender, nondistended. Bowel sounds present and normoactive. No guarding. No rebound. No organomegaly. EXTREMITIES: No clubbing, cyanosis, or edema. No calf tenderness. Well perfused and warm. NEUROLOGICAL: Non-focal. PSYCHIATRIC: cooperative. LINE: No evidence of infection Assessment & Plan Remarks IMPRESSION Meningitis, HSV 2 PCVR (+) KEARNEY, N/V due to meningitis RECOMMENDATION Continue IV Acyclovir, plan 10 days Stop Rocephin PICC Arrange for home IV Acyclovir - arrangement difficult nnamdi patient from [facility] and they drove down here for bike week Monitor progress As long as KEARNEY under control and she is tolerating po intake, D/C plans ok I will fill out infusion form - will need to arrange with her primary care physician D/W Dr Tay (HEPAS) D/W CM Explained plan to patient Migdalia Logan MD Nov 28, 2017 13:33
--- NOTE | 2017-11-28 13:35 | HHI.FF ---
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 [] May leave port accessed during therapy. [] May leave peripheral site accessed for duration of therapy. [x] If patient has SOB or respiratory distress, check oxygen saturation. If less than 90% or clinical signs of respiratory distress, administer oxygen at 2 L/min. via nasal cannula and notify physician. [x] Anaphylaxis/Reaction orders: * Stop infusion. * Keep IV line open with saline flush. * Notify physician. * Monitor vital signs every 15 minutes until symptoms resolve. * Check Oxygen saturation; Oxygen at 2 L/min. via nasal cannula if less than 90% or clinical signs of respiratory distress. * Administer diphenhydramine (Benadryl) 25 mg IV STAT, (unless patient has received as pre-med). May repeat once, if necessary. * Solu-Cortef 250 mg IVP over 30-60 seconds, use 100 mg vials for each dissolution. * Epinephrine (1mg/1 ml) 0.3 mg subcutaneously or IVP now with any signs of respiratory distress. * Check with physician for new additional pre-med orders if patient is re- challenged or re-treated. [x] May remove PICC line when treatment complete, after confirming with Physician. [x] If the patient is admitted to the hospital, the ED, or transferred via [facility] , complete transfer form including medication reconciliation order sheet. Laboratory Tests Weekly Labs: [facility] (12/03, copy to her primary care physician) Migdalia Logan MD Nov 28, 2017 13:35
[2017-11-28] MEDS: SODIUM CHLOR 0.9% 1000 ML INJ 1,000 ML IV SCH (14:21)
[2017-11-28] MEDS: D5-NS + KCL 20 MEQ INJ 1,000 ML IV SCH (14:23)
[2017-11-28 16:04] VITALS: BP 128/66; PULSE 78; RESP 17; TEMP 98.2; O2SAT 99
[2017-11-28] MEDS ORDERED: SODIUM CHLORIDE 0.9% FLUSH 10 ML FLUSH IV FLUSH PRN (17:15)
--- NOTE | 2017-11-28 17:35 | RADRPT ---
EXAM DATE/TIME: 11/28/2017 17:23 [facility] COMPARISON: No previous studies available for comparison. INDICATIONS : Post PICC line placement. MEDICAL HISTORY : Hypertension. SURGICAL HISTORY : None. ENCOUNTER: Initial ACUITY: 1 day PAIN SCORE: 0/10 LOCATION: Right chest FINDINGS: A single view of the chest demonstrates the lungs to be symmetrically aerated without evidence of mas s, infiltrate or effusion. The cardiomediastinal contours are unremarkable. Osseous structures are intact. There is a PICC which enters from the right arm. The catheter tip is in excellent position. CONCLUSION: 1. PICC in satisfactory position. 2. The lungs are clear. Angel Jose MD on November 28, 2017 at 17:33 Board Certified Radiologist. This report was verified electronically.
[2017-11-28] MEDS ORDERED: PHARMACY ORDERED LAB ONE (17:45)
[2017-11-28 17:52] LABS: CSF CRYPTOCOCCUS ANTIGEN NOT DETECTED (NEGATIVE)
[2017-11-28 20:00] VITALS: BP 141/81; PULSE 80; RESP 18; O2SAT 99
[2017-11-29] VITALS: BP 121/62; PULSE 90; RESP 19; TEMP 99; O2SAT 96
[2017-11-29] MEDS: D5-NS + KCL 20 MEQ INJ 1,000 ML IV SCH ×3 (01:15→19:27)
[2017-11-29] MEDS: SODIUM CHLOR 0.9% 1000 ML INJ 1,000 ML IV SCH ×2 (02:27→13:55)
[2017-11-29] MEDS: ACETAMINOPHEN/HYDROcodone 325 MG/7.5 MG TAB PO PRN ×5 (03:27→21:35)
[2017-11-29 04:00] VITALS: BP 139/68; PULSE 82; RESP 19; TEMP 98.5; O2SAT 95
[2017-11-29] MEDS: SODIUM CHLORIDE 0.9% IV SCH ×3 (05:10→21:14)
[2017-11-29] MEDS: ACYCLOVIR IV SCH ×3 (05:10→21:14)
[2017-11-29 07:19] LABS: CREATININE 0.71 MG/DL (0.50-1.00)
[2017-11-29 08:04] VITALS: BP 139/89; PULSE 86; RESP 17; TEMP 98.4; O2SAT 100
[2017-11-29] MEDS: PANTOPRAZOLE SOD 40 MG DELAYED RELEASE TAB PO SCH (08:11)
[2017-11-29] MEDS: SODIUM CHLORIDE 0.9% FLUSH 10 ML FLUSH IV FLUSH SCH ×2 (08:11→08:13)
[2017-11-29] MEDS: FLUCONAZOLE 100 MG TAB PO SCH (10:02)
--- NOTE | 2017-11-29 11:05 | HHI.PR ---
Subjective Remarks Patient says that the every 6 dosing of the Tyler is too painful for her, every 4 is much more tolerable. Otherwise is tolerating p.o. intake. Objective Vital Signs Date Time Temp Pulse Resp B/P (MAP) Pulse Ox O2 Delivery O2 Flow Rate FiO2 11/29/17 09:16 Room Air 11/29/17 08:04 98.4 86 17 139/89 (106) 100 11/29/17 04:00 98.5 82 19 139/68 (91) 95 11/29/17 00:00 99.0 90 19 121/62 (81) 96 11/28/17 20:00 Room Air 11/28/17 20:00 80 18 141/81 (101) 99 11/28/17 16:04 98.2 78 17 128/66 (86) 99 11/28/17 12:04 98.4 107 17 129/72 (91) 99 I/O 11/28/17 11/28/17 11/28/17 11/29/17 11/29/17 11/29/17 07:00 15:00 23:00 07:00 15:00 23:00 Intake Total 1300 ml 950 ml 750 ml 1000 ml Balance 1300 ml 950 ml 750 ml 1000 ml Intake Oral 200 ml 600 ml IV Total 1100 ml 950 ml 150 ml 1000 ml # Voids 3 2 # Bowel Movements 0 0 Result Diagram: 11/25/17 1045 11/29/17 0630 Objective Remarks Lying in bed, no acute distress, is able to sit up with normal pain, good range of motion of the neck, A/P Assessment and Plan 47-year-old female presenting with one-week history of headache nausea or vomiting with low-grade fever and neck pain meningitis - ID following, HSV meningitis, on IV acyclovir, outpatient infusion therapy arrange for Intractable headache with nausea vomiting -improving, stable with Tyler, discussed with neurology, may be present for weeks, can be discharged from their standpoint hypothyroidism -Stable, continue home Synthroid Bilateral teds SCDs. protonix Anticipate discharge tomorrow morning since the patient is expected to get on a flight to go to [place] back to her home tomorrow where she can get her first dose of antiviral on the next day (Sunday). Ramu Tay MD Nov 29, 2017 11:05
[2017-11-29 12:23] VITALS: BP 154/94; PULSE 77; RESP 18; TEMP 98.4; O2SAT 100
--- NOTE | 2017-11-29 12:27 | HHI.IDPN ---
Subjective Subjective Remarks Patient is a 47-year-old female, presented to the hospital for evaluation of her headache, nausea and vomiting. Patient lives in [place] and came down here for the bike week. She started getting sick while she was still in [place] about a week ago. She was having generalized headache, and really bad nausea and vomiting. Was unable to take anything down. She went to an urgent care center there and she was given medications to control her GI symptoms. Patient and the drove down for 2 days to calm down here and they arrived last which is about 3 days prior to admission. Her symptoms continued, and she was also having some photophobia, and highest temperature was just low-grade. She denies any ear problem. No upper respiratory complaints no cough. She has not been anyone sick. She has cats and dogs at home. No birds. This will her and her 21-year-old daughter and none of them are sick. No prior history of meningitis. Presented to the emergency room, and CT of the head is unremarkable. LP was done and it had 1000 white cells predominantly lymphocytes, and it has a very low glucose. Her WBC is normal. She is afebrile. Infectious disease consultation has been requested to evaluate the patient for meningitis. Notes reviewed Temps ok Nausea and vomiting resolved Still with KEARNEY but better, still needs pain meds She is ok to fly, if ok medically CM working with her primary care for IV Abx at home - told patient can't do q8H dosing in outpatient infusion clinic CSF studies: C/S negative 48 hours Bacterial Ag pending HSV 2 PCR (+) HSV 1 PCR negative Crypto Ag negative CSF C/S negative MRI brain ok, no meningeal enhancement seen Antibiotics Acyclovir Current Medications Medications (Trade) Dose Ordered Sig/[place] Route Start Time Stop Time Status Last Admin (NS Flush) 2 ml UNSCH PRN IVF 11/25/17 10:30 11/25/17 15:58 Potassium Chloride/Dextrose/ Sod Cl 1,000 ml @ 100 mls/hr Q10H IV 11/25/17 17:15 11/27/17 22:11 (Zofran Inj) 4 mg Q8HR PRN IV PUSH 11/25/17 18:00 11/27/17 10:15 Acyclovir Sodium 751 mg/Sodium Chloride 150 ml @ 150 mls/hr Q8H IV 11/27/17 14:00 11/29/17 05:10 Sodium Chloride 1,000 ml @ 84 mls/hr [id number] IV 11/27/17 14:15 11/29/17 02:27 (Protonix) 40 mg DAILY PO 11/27/17 14:15 11/29/17 08:11 (Phenergan Inj) 12.5 mg Q6H PRN IM 11/27/17 18:30 11/27/17 18:43 (Diflucan) 100 mg Q24H PO 11/28/17 11:00 11/29/17 10:02 (NS Flush) See Protocol DAILY IV FLUSH 11/29/17 09:00 (NS Flush) See Protocol UNSCH PRN IV FLUSH 11/28/17 17:15 (Heparin Central Flush) See Protocol DAILY IV FLUSH 11/29/17 09:00 (Heparin Central Flush) See Protocol UNSCH PRN IV FLUSH 11/28/17 17:15 (NS Flush) UNSCH PRN IV FLUSH 11/28/17 17:15 ([place] 7.5-325 Mg) 1 tab Q4H PRN PO 11/28/17 18:30 11/29/17 08:12 Current Medications Medications (Trade) Dose Ordered Sig/[place] Route Start Time Stop Time Status Last Admin (NS Flush) 2 ml UNSCH PRN IVF 11/25/17 10:30 11/25/17 15:58 Potassium Chloride/Dextrose/ Sod Cl 1,000 ml @ 100 mls/hr Q10H IV 11/25/17 17:15 11/27/17 22:11 (Zofran Inj) 4 mg Q8HR PRN IV PUSH 11/25/17 18:00 11/27/17 10:15 Acyclovir Sodium 751 mg/Sodium Chloride 150 ml @ 150 mls/hr Q8H IV 11/27/17 14:00 11/28/17 12:48 Sodium Chloride 1,000 ml @ 84 mls/hr [id number] IV 11/27/17 14:15 11/27/17 15:09 (Protonix) 40 mg DAILY PO 11/27/17 14:15 11/28/17 08:23 (Phenergan Inj) 12.5 mg Q6H PRN IM 11/27/17 18:30 11/27/17 18:43 (Diflucan) 100 mg Q24H PO 11/28/17 11:00 11/28/17 11:16 ([place] 7.5-325 Mg) 1 tab Q6H PRN PO 11/28/17 11:15 11/28/17 12:18 Lines PIV Past Medical History Hypothyroidism on Synthroid Chronic knee pain takes not a when necessary for pain Perimenopausal. 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 section and prepped patient described his some scar tissue removal in her uterus states no hysterectomy was done Allergies: Coded Allergies: No Known Allergies (Unverified , 11/25/17) Objective . Vital Signs Date Time Temp Pulse Resp B/P (MAP) Pulse Ox O2 Delivery O2 Flow Rate FiO2 11/29/17 12:23 98.4 77 18 154/94 (114) 100 11/29/17 09:16 Room Air 11/29/17 08:04 98.4 86 17 139/89 (106) 100 11/29/17 04:00 98.5 82 19 139/68 (91) 95 11/29/17 00:00 99.0 90 19 121/62 (81) 96 11/28/17 20:00 Room Air 11/28/17 20:00 80 18 141/81 (101) 99 11/28/17 16:04 98.2 78 17 128/66 (86) 99 . Laboratory Tests Test 11/28/17 05:15 11/29/17 06:30 Blood Urea Nitrogen 7 MG/DL Creatinine 0.63 MG/DL 0.71 MG/DL Random Glucose 92 MG/DL Total Protein 6.7 GM/DL Albumin 3.2 GM/DL Calcium Level 8.1 MG/DL Alkaline Phosphatase 54 U/L Aspartate Amino Transf (AST/SGOT) 22 U/L Alanine Aminotransferase (ALT/SGPT) 41 U/L Total Bilirubin 0.3 MG/DL Sodium Level 139 MEQ/L Potassium Level 3.8 MEQ/L Chloride Level 101 MEQ/L Carbon Dioxide Level 30.3 MEQ/L Anion Gap 8 MEQ/L Estimat Glomerular Filtration Rate 101 ML/MIN 88 ML/MIN Imaging Last Impressions Head CT 11/25/17 1017 Signed Impressions: Service Date/Time: Saturday, November 25, 2017 10:58 - CONCLUSION: No acute disease. Aramis Betts MD Physical Exam GENERAL: awake and alert, not in respiratory distress. SKIN: Cool and dry. No generalized rash HEAD: Atraumatic. Normocephalic. No temporal wasting, or tenderness. EYES: [place] conjunctiva. No petechia or hemorrhage. Pupils equal, round and reactive to light. Extraocular movements full and intact. No scleral icterus. No injection or drainage. EARS, NOSE AND THROAT: Nose without bleeding or purulent nasal discharge. Moist oral mucosa, no oral lesions. h. NECK: Trachea midline. Not tender. neck movement better CARDIOVASCULAR: Regular rate and rhythm. No murmurs, rubs or gallops heard RESPIRATORY: Clear to auscultation. Breath sounds equal bilaterally. No rales , wheezing or rhonchi ABDOMEN: Soft, non-tender, nondistended. Bowel sounds present and normoactive. No guarding. No rebound. No organomegaly. EXTREMITIES: No clubbing, cyanosis, or edema. No calf tenderness. Well perfused and warm. NEUROLOGICAL: Non-focal. PSYCHIATRIC: cooperative. LINE: No evidence of infection Assessment & Plan Remarks IMPRESSION Meningitis, HSV 2 PCVR (+) KEARNEY, still present but improving N/V resolved RECOMMENDATION Continue IV Acyclovir, plan 10 days Abx infusion form filled out PICC Arrange for home IV Acyclovir - arrangement difficult nnamdi patient from [facility] and they drove down here for bike week Monitor progress As long as KEARNEY under control and she is tolerating po intake, D/C plans ok Explained plan to patient Migdalia Logan MD Nov 29, 2017 12:27
[2017-11-29 16:03] VITALS: BP 147/87; PULSE 72; RESP 18; TEMP 97.8; O2SAT 99
[2017-11-29] MEDS ORDERED: HYDR-3366 PO (16:49)
[2017-11-29] MEDS: LEVOTHYROXINE SODIUM 100 MCG TAB PO SCH (19:15)
[2017-11-29] MEDS: FLUoxetine HCL 10 MG CAP PO SCH (19:15)
[2017-11-29 20:39] VITALS: BP 150/91; PULSE 75; RESP 18; TEMP 98; O2SAT 97
[2017-11-29 23:53] LABS: HAEMOPHILUS FLU AG TYPE B Not Detected (Not Detected)
[2017-11-30 00:11] VITALS: BP 130/86; PULSE 80; RESP 18; TEMP 97.6; O2SAT 95
[2017-11-30] MEDS: ACETAMINOPHEN/HYDROcodone 325 MG/7.5 MG TAB PO PRN ×3 (02:32→12:07)
[2017-11-30 04:00] VITALS: BP 125/72; PULSE 66; RESP 17; TEMP 97.8; O2SAT 97
[2017-11-30] MEDS: ACYCLOVIR IV SCH ×2 (05:20→10:35)
[2017-11-30] MEDS: SODIUM CHLORIDE 0.9% IV SCH ×2 (05:20→10:35)
[2017-11-30] MEDS: LEVOTHYROXINE SODIUM 100 MCG TAB PO SCH (06:22)
[2017-11-30] MEDS: D5-NS + KCL 20 MEQ INJ 1,000 ML IV SCH (07:15)
[2017-11-30 08:00] VITALS: BP 132/88; PULSE 76; RESP 16; TEMP 97.8; O2SAT 92
[2017-11-30] MEDS: SODIUM CHLORIDE 0.9% FLUSH 10 ML FLUSH IV FLUSH SCH (09:00)
--- NOTE | 2017-11-30 09:12 | MB ---
cc: New Hi MD DATE OF CONSULT: 11/29/2017 CHIEF COMPLAINT: She is 47 years old, with history of headaches and meningitis. HISTORY OF PRESENT ILLNESS: The patient came from what I believe to be [facility] for the bike week. Thirteen days ago, she developed headaches and in the following day, she had nausea and some vomiting. She also had a low temperature. She sought medical care locally and was given some symptomatic treatment. She came to this area and was admitted on 11/25 because of increasing symptoms and a low grade fever. A spinal tap was done, which showed CSF protein 136, CSF glucose 29, while serum glucose was 86, CSF WBC was 1030, with 90% lymphs, CSF RBC was 20. The patient was admitted and has been treated with acyclovir. 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 HSV 1 by PCR was negative. She is still having headaches, requiring [place]. She is currently on acyclovir 751 milligrams every 8 hours intravenous. The patient had an MRI brain on 11/27, showing no acute findings, no meningeal enhancement. PHYSICAL EXAMINATION: The neurological exam was normal with the exception of some mild nuchal rigidity/pain, especially when she turns her head [id number], more so than when she fully flexes her neck. Her reflexes were 2+ throughout. Plantar responses flexor. Alert, oriented. I could not see the discs well, her pupils were relatively small. Visual sheikh were full. No facial weakness. Speech and language normal. 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 She is significantly improved, no longer having fevers. There is a plan for her to be discharged tomorrow and she will fly to [place], and she is already hooked up with a physician there for followup. 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 Therefore, I agree with her being discharged and I recommended that she take the pain killer medication when she boards her airplane and also take some Zofran, as she already has this medication. We discussed her that at times this type of meningitis may recur. I should add that she has had a history of migraines characterized by visual phenomena only, flickering lights and halos, but no pain and this happens occasionally. There is no evidence of encephalitis at this point. The spinal fluid cultures showed no growth. Thank you for asking us to assist in her care. New Hi MD [facility]/ , 05:46 PM , 06:12 PM
[2017-11-30] MEDS ORDERED: PROM12.54 PO ×2 (09:18→09:22)
[2017-11-30] MEDS ORDERED: HYDR-3366 PO (09:22)
--- NOTE | 2017-11-30 09:23 | HHI.DCPOC ---
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 Avoid second hand smoke Call the 24-hour hour crisis hotline for domestic abuse at Ramu Tay MD Nov 30, 2017 09:23
[2017-11-30] MEDS: FLUoxetine HCL 10 MG CAP PO SCH (09:30)
[2017-11-30] MEDS: PANTOPRAZOLE SOD 40 MG DELAYED RELEASE TAB PO SCH (09:30)
--- NOTE | 2017-11-30 10:23 | HHI.DS ---
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 Patient was in [place] then. Patient also states some on and off low-grade fever with MAXIMUM TEMPERATURE of 99.4. Persistence of this prompted consult in an urgent care clinic where she was prescribed some medications "for the stomach".. Patient denies any diarrhea. Denies any cough. Or any URI symptoms. Patient denies any recent sick contacts or recent travel out of the country. Denies any vaginal bleeding still sexually active. Patient states unable to hold down any food. This morning also felt lightheaded which prompted her to come to the hospital and admitted for further evaluation. Patient on review of systems - night sweats which is attributed to her perimenopausal period. And she was prescribed Prozac for this. Patient also takes when necessary medications for knee pain.- Lortab,. CBC/BMP: 11/29/17 0630 Significant Findings Laboratory Tests Test 11/28/17 05:15 11/29/17 06:30 Albumin 3.2 GM/DL (3.4-5.0) Calcium Level 8.1 MG/DL (8.5-10.1) Estimat Glomerular Filtration Rate 88 ML/MIN (>89) Hospital Course Patient was admitted after lumbar puncture was performed. Started on antibiotics. Infectious disease was consulted, started patient on acyclovir. 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 Patient's headache nausea and vomiting had improved but maintained a residual persistent level. Patient is able tolerate p.o. intake. Neurology had been consulted and cleared the patient for discharge with p.o. pain medications as a recommendation for her headache. Patient had home health arranged for IV acyclovir to be administered. Patient has met maximal benefit of hospitalization is clinically stable for discharge. Pt Condition on Discharge: Stable Discharge Disposition: Discharge Home Discharge Time: <= 30 minutes Discharge Instructions DIET: Follow Instructions for: Heart Healthy Diet Activities you can perform: Regular-No Restrictions Follow up Referrals: PCP Follow-up - 1 Week PCP Follow-up SN[facility] with [facility] IN [place] New Medications: Fluconazole (Diflucan) 100 Mg Tab 100 MG PO DAILY for Infection for 7 Days, #7 TAB 0 Refills Hydrocodone-Acetaminophen ([place]) 10-325 Mg Tab 1 TAB PO Q6H PRN for PAIN, #60 TAB 0 Refills Promethazine (Promethazine) 12.5 Mg Tab 12.5 MG PO DIRECTED PRN for NAUSEA OR VOMITING, #60 TAB 0 Refills 1 to 2 tabs by mouth every 6 hrs as needed for nausea/vomiting Continued Medications: Fluoxetine (Prozac) 10 Mg Cap 10 MG PO DAILY, #30 CAP 0 Refills Levothyroxine (Levothyroxine) 100 Mcg Tab 100 MCG PO DAILY for Thyroid, #30 TAB 0 Refills Ramu Tay MD Nov 30, 2017 10:22
[2017-11-30] MEDS: FLUCONAZOLE 100 MG TAB PO SCH (11:00)
[2017-11-30] MEDS ORDERED: DIFL100T PO (11:23)
--- NOTE | 2017-11-30 11:29 | HHI.FF ---
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 My clinical findings support the need for the requested home health care services because: Injectable med education/admin I certify that my clinical findings support that this patient is homebound because: Unsafe to leave home unassisted Ramu Tay MD Nov 30, 2017 11:29
--- NOTE | 2017-11-30 11:29 | HHI.IDPN ---
Subjective Subjective Remarks Patient is a 47-year-old female, presented to the hospital for evaluation of her headache, nausea and vomiting. Patient lives in [place] and came down here for the bike week. She started getting sick while she was still in [place] about a week ago. She was having generalized headache, and really bad nausea and vomiting. Was unable to take anything down. She went to an urgent care center there and she was given medications to control her GI symptoms. Patient and the drove down for 2 days to calm down here and they arrived last which is about 3 days prior to admission. Her symptoms continued, and she was also having some photophobia, and highest temperature was just low-grade. She denies any ear problem. No upper respiratory complaints no cough. She has not been anyone sick. She has cats and dogs at home. No birds. This will her and her 21-year-old daughter and none of them are sick. No prior history of meningitis. Presented to the emergency room, and CT of the head is unremarkable. LP was done and it had 1000 white cells predominantly lymphocytes, and it has a very low glucose. Her WBC is normal. She is afebrile. Infectious disease consultation has been requested to evaluate the patient for meningitis. Notes reviewed Temps ok Much improved Has ticket to fly back tonight Reviewed the infusion form - it has 2 doses for Acyclovir one is q8h and another daily The once a day has been arranged I spoke with CM to correct the dose and faxed again to her rn occupational health I also informed patient that it needs to be q8H and not once a day Antibiotics Acyclovir Current Medications Medications (Trade) Dose Ordered Sig/Corby Route Start Time Stop Time Status Last Admin (NS Flush) 2 ml UNSCH PRN IVF 11/25/17 10:30 11/25/17 15:58 Potassium Chloride/Dextrose/ Sod Cl 1,000 ml @ 100 mls/hr Q10H IV 11/25/17 17:15 11/27/17 22:11 (Zofran Inj) 4 mg Q8HR PRN IV PUSH 11/25/17 18:00 11/27/17 10:15 Acyclovir Sodium 751 mg/Sodium Chloride 150 ml @ 150 mls/hr Q8H IV 11/27/17 14:00 11/29/17 05:10 Sodium Chloride 1,000 ml @ 84 mls/hr [id number] IV 11/27/17 14:15 11/29/17 02:27 (Protonix) 40 mg DAILY PO 11/27/17 14:15 11/29/17 08:11 (Phenergan Inj) 12.5 mg Q6H PRN IM 11/27/17 18:30 11/27/17 18:43 (Diflucan) 100 mg Q24H PO 11/28/17 11:00 11/29/17 10:02 (NS Flush) See Protocol DAILY IV FLUSH 11/29/17 09:00 (NS Flush) See Protocol UNSCH PRN IV FLUSH 11/28/17 17:15 (Heparin Central Flush) See Protocol DAILY IV FLUSH 11/29/17 09:00 (Heparin Central Flush) See Protocol UNSCH PRN IV FLUSH 11/28/17 17:15 (NS Flush) UNSCH PRN IV FLUSH 11/28/17 17:15 (Eagar 7.5-325 Mg) 1 tab Q4H PRN PO 11/28/17 18:30 11/29/17 08:12 Current Medications Medications (Trade) Dose Ordered Sig/[place]by Route Start Time Stop Time Status Last Admin (NS Flush) 2 ml UNSCH PRN IVF 11/25/17 10:30 11/25/17 15:58 Potassium Chloride/Dextrose/ Sod Cl 1,000 ml @ 100 mls/hr Q10H IV 11/25/17 17:15 11/27/17 22:11 (Zofran Inj) 4 mg Q8HR PRN IV PUSH 11/25/17 18:00 11/27/17 10:15 Acyclovir Sodium 751 mg/Sodium Chloride 150 ml @ 150 mls/hr Q8H IV 11/27/17 14:00 11/28/17 12:48 Sodium Chloride 1,000 ml @ 84 mls/hr [id number] IV 11/27/17 14:15 11/27/17 15:09 (Protonix) 40 mg DAILY PO 11/27/17 14:15 11/28/17 08:23 (Phenergan Inj) 12.5 mg Q6H PRN IM 11/27/17 18:30 11/27/17 18:43 (Diflucan) 100 mg Q24H PO 11/28/17 11:00 11/28/17 11:16 (Eagar 7.5-325 Mg) 1 tab Q6H PRN PO 11/28/17 11:15 11/28/17 12:18 Lines PIV Past Medical History Hypothyroidism on Synthroid Chronic knee pain takes not a when necessary for pain Perimenopausal. 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 section and prepped patient described his some scar tissue removal in her uterus states no hysterectomy was done Allergies: Coded Allergies: No Known Allergies (Unverified , 11/25/17) Objective . Vital Signs Date Time Temp Pulse Resp B/P (MAP) Pulse Ox O2 Delivery O2 Flow Rate FiO2 11/30/17 11:19 11/30/17 08:00 97.8 76 16 132/88 (103) 92 11/30/17 07:57 Room Air 11/30/17 04:00 97.8 66 17 125/72 (89) 97 11/30/17 04:00 Room Air 11/30/17 00:11 97.6 80 18 130/86 (101) 95 11/30/17 00:00 Room Air 11/29/17 20:39 98.0 75 18 150/91 (110) 97 11/29/17 20:00 Room Air 11/29/17 16:03 97.8 72 18 147/87 (107) 99 11/29/17 12:23 98.4 77 18 154/94 (114) 100 11/30/17 11/30/17 12/01/17 15:00 23:00 07:00 Intake Total 84 ml Balance 84 ml IV Total 84 ml . Laboratory Tests Test 11/29/17 06:30 Creatinine 0.71 MG/DL Estimat Glomerular Filtration Rate 88 ML/MIN Imaging Last Impressions Head CT 11/25/17 1017 Signed Impressions: Service Date/Time: Saturday, November 25, 2017 10:58 - CONCLUSION: No acute disease. Aramis Betts MD Physical Exam GENERAL: Up in chair, NAD SKIN: Cool and dry. No generalized rash EYES: Bieber conjunctiva. No petechia or hemorrhage. Pupils equal, round and reactive to light. Extraocular movements full and intact. No scleral icterus. No injection or drainage. EARS, NOSE AND THROAT: Nose without bleeding or purulent nasal discharge. Moist oral mucosa, no oral lesions. h. NECK: No nuchal rigidity CARDIOVASCULAR: Regular rate and rhythm. No murmurs, rubs or gallops heard RESPIRATORY: Clear to auscultation. Breath sounds equal bilaterally. No rales , wheezing or rhonchi ABDOMEN: Soft, non-tender, nondistended. Bowel sounds present and normoactive. No guarding. No rebound. No organomegaly. EXTREMITIES: No clubbing, cyanosis, or edema. No calf tenderness. Well perfused and warm. NEUROLOGICAL: Non-focal. PSYCHIATRIC: cooperative. LINE: No evidence of infection Assessment & Plan Remarks IMPRESSION Meningitis, HSV 2 PCVR (+) KEARNEY, still present but improving N/V resolved RECOMMENDATION Continue IV Acyclovir, plan 10 days - needs to correct dose to q8h and fax JAVY to her rn occupational health Explained this to the patient D/W Migdalia Butler MD Nov 30, 2017 11:29
[2017-11-30] MEDS ORDERED: DEXT 5%-NACL 0.45% 1000 ML INJ 1,000 ML IV SCH (19:00)
== END 2017-11-30 13:19 | disposition home health service (06) | DRG 76 ==
LOC: NEPC 09:46 → NEDA 15:03 → INTOOBSV 15:03 → OBSVTOIN 16:34 → N04A 17:26
PROVIDERS: ADMIT Hospitalist; ATTEND Hospitalist
PROC: 009U3ZX Drainage of Spinal Canal, Percutaneous Approach, Diagnostic (ICD-10-PCS; principal; 2017-11-25)
DX: B00.3 Herpesviral meningitis (principal); E03.9 Hypothyroidism, unspecified; E86.0 Dehydration; G89.29 Other chronic pain; M25.569 Pain in unspecified knee; F17.210 Nicotine dependence, cigarettes, uncomplicated
CPT/HCPCS: 36569; 62270; 70450; 70553; 71045; 76937; 80048; 80053; 80076; 80202; 80307; 81001; 82565; 82945; 84157; 84443; 85025; 86403; 87040; 87070; 87205; 87449; 87529; 89051; 96361; 96365; 96376; A9579; J0133; J0290; J0696; J0780; J1170; J1200; J1642; J2405; J2550; J3370; J3480; J7030; J7050